=== PATIENT | female | born 1950 | race Caucasian/White ===

== ENCOUNTER 2016-07-14 06:10 | Inpatient (IN) | payer OTHER ==
--- NOTE | 2016-07-09 16:19 | HP ---
Admitting History and Physical - Primary Care Physician PCP: Jairon Mcconnell - Admission Chief Complaint: Right breast cancer/ gene positive BRITTNEY mutation History of Present Illness: 65 year old postmenapausal female with family H/O breast cancer and recently diagnosed with BRITTNEY mutation and right breast lobular carcinoma. She routinely gets mammogram/Us and breast MRI. Mammogram and US 07/2015 were unchanged . MRI breast 05/2016 showed right 9:00 suspicious area.7mm. Us directed showed suspicious finding. US core b right 9:00 06/2016 showed invasive lobular carcinoma.She had a prior benign breast right side biopsy. History Source: Patient Limitations to Obtaining History: No Limitations - Past Medical History Cardiovascular: Yes: HTN - Past Surgical History Past Surgical History: Yes: (with hematoma 1982), Joint Replacement, Vein Stripping/Ligation - Smoking History Smoking history: Never smoked Have you smoked in the past 12 months: No - Alcohol/Substance Use Hx Alcohol Use: Yes (RARELY) Home Medications - Allergies Allergies/Adverse Reactions: Allergies Allergy/AdvReac Type Severity Reaction Status Date / Time No Known Allergies Allergy Verified 06/24/16 13:05 - Home Medications Home Medications: Ambulatory Orders Acetaminophen [Tylenol -] 1,000 mg PO BID 06/24/16 Losartan Potassium [Cozaar -] 50 mg PO DAILY 06/24/16 Family Disease History - Family Disease History Family Disease History: CA: Mother (leukemia), Sister (Breast ca 59// siter bilateral breast ca and endometrial ca 55 BRCA neg) Physical Examination Constitutional: Yes: Well Nourished Breast(s): Yes: Other (C cup breast bilaterally no palpable masses bilaterally post bx changes right breast with mild echymosis no palpable adenopathy bilaterally) Problem List - Problems (1) Breast cancer, right breast Code(s): C50.911 - MALIGNANT NEOPLASM OF UNSP SITE OF RIGHT FEMALE BREAST Qualifiers: Breast location: upper outer quadrant of breast Patient sex: female (2) 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
[2016-07-13 14:58] VITALS: BMI 31.9
[2016-07-14] MEDS ORDERED: ISOSULFAN BLUE 10 MG/ML VIAL SQ ONE (07:32)
[2016-07-14] MEDS ORDERED: PAPAVERINE HCL 30 MG/1 ML 10 ML VIAL NR ONE (07:32)
[2016-07-14] MEDS ORDERED: HEPARIN NA (PORCINE) 5,000 UNITS/ML 1ML VIAL ONE (07:32)
[2016-07-14] MEDS ORDERED: PROPOFOL 20 ML ONE ×5 (07:42→15:35)
[2016-07-14] MEDS ORDERED: MIDAZOLAM HCL 2 MG/2 ML SINGLE DOSE VIAL ONE ×5 (07:42)
[2016-07-14] MEDS ORDERED: ROCURONIUM BROMIDE 50 MG/5 ML VIAL ONE ×6 (07:42→14:47)
[2016-07-14] MEDS ORDERED: ceFAZolin SODIUM 1 GM VIAL ONE ×2 (08:35→13:18)
[2016-07-14] MEDS ORDERED: BUPIVACAINE HCL/PF 0.25% (2.5MG/ML) 10 ML VIAL ONE (08:39)
[2016-07-14] MEDS ORDERED: LIDOCAINE HCL 1%, 10 MG/ML (20ML VIAL) ONE (08:39)
[2016-07-14] MEDS ORDERED: DEXAMETHASONE SOD PHOSPHATE 4 MG/1 ML VIAL ONE (08:45)
[2016-07-14] MEDS ORDERED: ONDANSETRON 4 MG/2 ML VIAL ONE (08:45)
[2016-07-14] MEDS ORDERED: ceFAZolin SODIUM 1 GM VIAL IVPB ONE ×2 (08:55→13:19)
[2016-07-14] MEDS ORDERED: GLYCOPYRROLATE 0.2 MG/1 ML VIAL ONE ×3 (09:53→17:24)
[2016-07-14] MEDS ORDERED: MINERAL OIL/PETROLATUM,WHITE 3.5 GM TUBE ONE (09:53)
[2016-07-14] MEDS ORDERED: ePHEDrine SULFATE 50 MG/1 ML AMPULE ONE (10:38)
[2016-07-14] MEDS ORDERED: SCOPOLAMINE HYDROBROMIDE 1 PATCH PATCH.TD72 ONE (10:48)
[2016-07-14] MEDS ORDERED: PHENYLEPHRINE HCL 10 MG/1 ML SINGLE DOSE VIAL ONE (15:25)
[2016-07-14] MEDS ORDERED: HYDROmorphone HCL/PF 1 MG/ML VIAL (FOR PYXIS CHARGING ONLY) ONE (16:10)
[2016-07-14] MEDS ORDERED: ONDANSETRON 4 MG/2 ML VIAL IVPUSH PRN (16:20)
[2016-07-14] MEDS ORDERED: NEOSTIGMINE METHYLSULFATE 0.5 MG/ML - 10 ML MDV ONE (16:48)
[2016-07-14] MEDS ORDERED: BACITRACIN 30 GM TUBE TOPICAL OINTMENT ONE (17:36)
--- NOTE | 2016-07-14 17:58 | OP ---
Operative Note - Note: Operative Date: 07/14/16 Pre-Operative Diagnosis: right breast cancer Operation: Bilateral breast mastectomy with right sentinel lymph node biopsy. Bilateral reconstruction with HAYDEN flap Implants: none Post-Operative Diagnosis: Same as Pre-op Surgeon: Haider Charles (Dr. Ahumada) Bird Sitter: Erlin Roberts) Anesthesiologist/BRAIDING OPERATOR: Wagner De Guzman Anesthesia: General Specimens Removed: bilateral breast, sentinel biopsy right breast Estimated Blood Loss (mls): 250 Drains & Tubes with Location: 4 EHSAN drains Fluid Volume Replaced (mls): 3,900
[2016-07-14] MEDS ORDERED: LACTATED RINGERS SOLUTION 1,000 ML IV STA (18:02)
[2016-07-14] MEDS ORDERED: HYDROmorphone *PCA* 10MG/50ML DISP.SYRIN PCA ONE (18:25)
[2016-07-14] MEDS ORDERED: HYDROmorphone HCL CARPU-JECT 2 MG/1 ML DISP.SYRIN ONE (18:25)
[2016-07-14] MEDS: HYDROmorphone HCL CARPU-JECT 1 MG/1 ML DISP.SYRIN IVPUSH PRN ×2 (18:28→18:38)
[2016-07-14] MEDS: LACTATED RINGERS SOLUTION 1,000 ML IV SCH (18:30)
[2016-07-14] MEDS: HYDROmorphone *PCA* 10MG/50ML DISP.SYRIN PCA SCH (19:00)
[2016-07-14] MEDS: ASPIRIN 325 MG ENTERIC COATED TABLET (FP) PO SCH (20:00)
--- NOTE | 2016-07-14 20:34 | CONSULT ---
Consult - text type - Consultation Consultation Note: PULM/CCM Pt Seen and examined in ICU CC: post op bilateral mastectomy HPI: Briefly Ms Saxena is a 65 year old postmenopausal female with significant family hx of breast cancer and recent diagnosed of right breast lobular carcinoma w/ BRITTNEY mutation. Her recent investigations were notable for MRI breast 05/2016 which showed suspicious area 9:00 of ~.7mm. US confirmed suspicious finding and a US core biopsy on 06/2016 showed invasive lobular carcinoma.She had a prior benign breast right side biopsy. She now presents to hospital for elective bilateral breast mastectomy with right sentinel lymph node biopsy and bilateral reconstruction with HAYDEN flap. The surgery was performed under general anesthesia, there was 250cc of estimated blood loss with 3.8L of intra-op fluids given. 4 drains were placed, she was recovered and extubated in PACU. She comes to ICU for overnight observation, monitoring of EHSAN drain output, and monitoring of flap viability/pulses with doppler. Ms Saxena arrives in ICU awake, alert, pain controleld and hemodyanmically stable. Past Medical History Cardio/Vascular HTN Past Surgical History Past Surgical History (with hematoma 1982),Joint Replacement ,Vein Stripping/Ligation Ambulatory Orders Acetaminophen [Tylenol -] 1,000 mg PO BID 06/24/16 Losartan Potassium [Cozaar -] 50 mg PO DAILY 06/24/16 Vital Signs Temp 98.4 F 07/14/16 20:30 Pulse 87 07/14/16 20:30 Resp 22 07/14/16 20:30 BP 124/75 07/14/16 20:30 Pulse Ox 98 07/14/16 06:37 Intake & Output 07/13/16 07/14/16 07/14/16 23:59 11:59 23:59 Intake Total 3900 Output Total 1050 Balance 2850 Weight 84.368 kg Intake: IV 3900 Output: Urine 800 Estimated Blood Loss 250 Other: Height 5 ft 4 in Body Mass Index (BMI) 31.9 Weight Measurement Method Stated by Patient LABS pending Imaging Pending ROS: non contrib. Elective surgery. No complaints prior to admission. PE: GEN: awake, alert, conversant, likley anxious HEENT: PERRL, NCAT CV: RRR, no m/r/g Chest/abd: bilateral surgical incisions, viable appear tissue bilaterally, + doppler b/l EHSAN #1: 100cc, #2-4 < 30cc all sanginous + BS EXT: trace edema, + pulses throughout. Neuro: non focal A/ 65 y/o woman s/p uneventful bilateral mastectomy with Bilateral reconstruction with HAYDEN flap P/ -overnight ICU observation -PROFESSIONAL HEALTHCARE REPRESENTATIVE for pain control -monitor EHSAN x 4 output, contact surgical team for brisk output -serial monitoring of arterial doppler flow to bilateral flaps -am CBC unless significant outpt -OOB to chair in am -advance diet as tolerated -if stable overnight, ok for med surg in am -DVT prophy Fam Sam ACNP [id number]
[2016-07-14] MEDS: DOCUSATE SODIUM 100 MG CAPSULE (FP) PO SCH (21:55)
[2016-07-14] MEDS: CEFAZOLIN (PRE-DOCKED) 50 ML IVPB SCH (21:55)
[2016-07-15] MEDS: CEFAZOLIN (PRE-DOCKED) 50 ML IVPB SCH ×4 (02:19→21:02)
[2016-07-15 06:19] LABS: MCH 28.9 pg (25.7-33.7); MEAN CELL VOLUME 87.5 fl (80-96); MEAN PLT VOLUME 10.7 fl (7.5-11.1); NEUTROPHILS 83.7 % (42.8-82.8); PLATELET COUNT 142 K/MM3 (134-434); RDW 15.1 % (11.6-15.6); WHITE BLOOD COUNT 10.2 K/mm3 (4.0-10.0)
--- NOTE | 2016-07-15 07:48 | PN ---
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 After counseling , the patient decided to undergoe bilateral mastectomies and chose to have bilateral HAYDEN reconstructions. - Current Medication List Current Medications: Active Medications Aspirin (Ecotrin -) 325 mg PO DAILY [facility] Last Admin: 07/14/16 20:00 Dose: 325 mg Diazepam (Valium -) 5 mg PO Q8H PRN PRN Reason: ANXIETY Docusate Sodium (Colace -) 100 mg PO BID [facility] Last Admin: 07/14/16 21:55 Dose: 100 mg Enoxaparin Sodium (Lovenox -) 40 mg SQ DAILY [facility] Hydromorphone HCl (Dilaudid Maths Tutor -) 0 mg CRADLE PLACER CRADLE PLACER ANUP PRN Reason: Protocol Stop: 07/17/16 16:21 Last Admin: 07/14/16 19:00 Dose: 10 mg Hydromorphone HCl (Dilaudid Injection -) 0.5 mg IVPUSH [id number] PRN PRN Reason: PAIN Stop: 07/17/16 16:21 Last Admin: 07/14/16 18:38 Dose: 0.5 mg Cefazolin Sodium (Ancef 1gm Ivpb (Pre-Docked)) 50 mls @ 100 mls/hr IVPB Q6H-IV [facility] Last Admin: 07/15/16 02:19 Dose: 100 mls/hr Lactated Ringer's (Lactated Ringers Solution) 1,000 mls @ 125 mls/hr IV ASDIR [facility] Last Admin: 07/14/16 18:30 Dose: 168 mls Losartan Potassium (Cozaar -) 50 mg PO DAILY [facility] - Objective Vital Signs: Vital Signs Temperature 99.4 F 07/15/16 02:00 Pulse Rate 87 07/15/16 06:00 Respiratory Rate 20 07/15/16 06:00 Blood Pressure 96/63 07/15/16 07:00 O2 Sat by Pulse Oximetry (%) 99 07/14/16 21:42 Constitutional: Yes: Well Nourished, No Distress, Calm Eyes: Yes: WNL HENT: Yes: WNL Neck: Yes: WNL Cardiovascular: Yes: Regular Rate and Rhythm Respiratory: Yes: Regular Gastrointestinal: Yes: Normal Bowel Sounds, Soft ...Rectal Exam: Yes: Deferred Genitourinary: Yes: WNL Breast(s): Yes: Other (Wounds clean, dry, and intact. 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 She has good pain control on CRADLE PLACER. Wounds clean, dry, and intact. Good doppler signals in flaps. Flaps warm and viable. Skin flaps intact. Drains putting out some bloody drainage. Hct lower but expected. Will start clear liquid diet today and allow OOB too chair in afternoon. Can remove bates when OOB. Will hold lovenox dose today. Continue antibiotics and continue CRADLE PLACER for pain. Continue regular flap checks. Code(s): Z15.01 - GENETIC SUSCEPTIBILITY TO MALIGNANT NEOPLASM OF BREAST (2) Breast cancer, right breast Code(s): C50.911 - MALIGNANT NEOPLASM OF UNSP SITE OF RIGHT FEMALE BREAST Qualifiers: Breast location: upper outer quadrant of breast Estrogen receptor status: positive Patient sex: female Qualified Code(s): C50.411 - Malignant neoplasm of upper-outer quadrant of right female breast; Z17.0 - Estrogen receptor positive status [ER+]
[2016-07-15] MEDS: LACTATED RINGERS SOLUTION 1,000 ML IV SCH ×2 (08:54→18:30)
[2016-07-15] MEDS ORDERED: ENOXAPARIN NA (PORCINE) 40 MG/0.4 ML DISP.SYRIN SQ SCH ×2 (10:00)
[2016-07-15] MEDS: ASPIRIN 325 MG ENTERIC COATED TABLET (FP) PO SCH (10:18)
[2016-07-15] MEDS: DOCUSATE SODIUM 100 MG CAPSULE (FP) PO SCH ×2 (10:18→21:03)
[2016-07-15] MEDS: LOSARTAN POTASSIUM 50 MG TABLET (FP) PO SCH ×2 (10:21→20:39)
--- NOTE | 2016-07-15 10:52 | PN ---
Physical Exam: SUBJECTIVE: Patient seen and examined. The pt is complaining of soreness and discomfort in her chest and upper abdomen. She denies chest pain, SOB, cough, fever, chills, palpitations. OBJECTIVE: Vital Signs Period Temp Pulse Resp BP Sys/Yee Pulse Ox Last 24 Hr 98.4 F-99.6 F 73-94 12-22 96-127/59-94 98-100 GENERAL: The patient is awake, alert, and fully oriented, in no acute distress. HEAD: Normal with no signs of trauma. EYES: PERRL, extraocular movements intact, sclera anicteric, conjunctiva clear. ENT: oropharynx clear without exudates, moist mucous membranes. NECK: Trachea midline, full range of motion, supple. LUNGS: Breath sounds equal, clear to auscultation bilaterally, no wheezes, no crackles, no accessory muscle use. HEART: Regular rate and rhythm, S1, S2 without murmur, rub or gallop. ABDOMEN: Obese, soft, nontender, nondistended, normoactive bowel sounds, no guarding, no rebound, no hepatosplenomegaly, no masses. EXTREMITIES: 2+ pulses, warm, well-perfused, no edema. NEUROLOGICAL: Normal speech, no facial asymmetry, no slurred speech, gait not observed. PSYCH: Normal mood, normal affect. SKIN: Warm, dry, normal turgor, no rashes, scars on her chest after mastectomy, well healing, drains applied b/l, good blood flow. Laboratory Results - last 24 hr 07/15/16 05:15 WBC 10.2 H RBC 3.21 L Hgb 9.3 L Hct 28.1 L MCV 87.5 MCHC 33.0 RDW 15.1 Plt Count 142 MPV 10.7 Neutrophils % 83.7 H Lymphocytes % 6.0 L Monocytes % 10.3 H Eosinophils % 0.0 Basophils % 0.0 Active Medications Generic Name Dose Route Start Last Admin Trade Name Freq PRN Reason Stop Dose Admin Aspirin 325 mg 07/14/16 20:00 07/15/16 10:18 Ecotrin - PO 325 mg DAILY [facility] Administration Diazepam 5 mg 07/14/16 17:58 Valium - PO Q8H PRN ANXIETY Docusate Sodium 100 mg 07/14/16 22:00 07/15/16 10:18 Colace - PO 100 mg BID [facility] Administration Enoxaparin Sodium 40 mg 07/15/16 10:00 Lovenox - SQ DAILY [facility] Hydromorphone HCl 0 mg 07/14/16 16:30 07/14/16 19:00 Dilaudid Lacquer Pin Press Operator - BOBTAIL DRIVER 07/17/16 16:21 10 mg BOBTAIL DRIVER ANUP Administration Protocol Hydromorphone HCl 0.5 mg 07/14/16 16:20 07/14/16 18:38 Dilaudid Injection - IVPUSH 07/17/16 16:21 0.5 mg [id number] PRN Administration PAIN Cefazolin Sodium 50 mls @ 100 mls/hr 07/14/16 21:00 07/15/16 08:53 Ancef 1gm Ivpb (Pre-Docked) IVPB 100 mls/hr Q6H-IV [facility] Administration Lactated Ringer's 1,000 mls @ 125 mls/hr 07/14/16 18:15 07/15/16 08:54 Lactated Ringers Solution IV 125 mls/hr ASDIR [facility] Administration Losartan Potassium 50 mg 07/14/16 10:00 07/15/16 10:21 Cozaar - PO 50 mg DAILY [facility] Administration ASSESSMENT/PLAN: 65 year old female s/p bilateral mastectomy with right SNL biopsy and bilateral reconstruction with HAYDEN flap. 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 Code(s): Z15.01 - GENETIC SUSCEPTIBILITY TO MALIGNANT NEOPLASM OF BREAST (2) Breast cancer, right breast Code(s): C50.911 - MALIGNANT NEOPLASM OF UNSP SITE OF RIGHT FEMALE BREAST Qualifiers: Breast location: upper outer quadrant of breast Estrogen receptor status: positive Patient sex: female Qualified Code(s): C50.411 - Malignant neoplasm of upper-outer quadrant of right female breast; Z17.0 - Estrogen receptor positive status [ER+] Visit type - Emergency Visit Emergency Visit: Yes ED Registration Date: 07/14/16 Care time: The patient presented to the Emergency Department on the above date and was hospitalized for further evaluation of their emergent condition. - New Patient This patient is new to me today: Yes Date on this admission: 07/15/16 - Critical Care Critical Care patient: Yes Total Critical Care Time (in minutes): 40 Critical Care Statement: The care of this patient involved high complexity decision making to prevent further life threatening deterioration of the patient 's condition and/or to evalute & treat vital organ system(s) failure or risk of failure.
--- NOTE | 2016-07-15 10:58 | OP ---
DATE OF OPERATION: 07/14/2016 PREOPERATIVE DIAGNOSIS: Right breast cancer, overlapping regions. POSTOPERATIVE DIAGNOSIS: Right breast cancer, overlapping regions, with known genetic predisposition for breast cancer. SURGERIES: Bilateral total mastectomies with a reduction pattern incision with a right axillary sentinel lymph node biopsy and bilateral deep flap reconstrutions. ANESTHESIA: General endotracheal anesthesia. PRIMARY SURGEON: Anival Zelaya MD PLUMBER'S HELPER: JESSICA Meza PRIMARY SURGEON FOR THE BILATERAL DEEP RECONSTRUCTION: Anival Charles MD HIS FIRST ASSISTANTS: Karlos Ahumada MD, and Jonah Pena MD COMPLICATIONS: There were no complications. INDICATIONS: Briefly, the patient is a 65-year-old postmenopausal white female of [place] descent. She has two sisters who had breast cancer at age 56 and age 60. The patient herself had a benign right breast biopsy in 2011. She had an increased scale risk model and underwent a screening MRI in May of 2016 showing a suspicious density in the right breast 9 o'clock region. MRI-guided biopsy performed in Jun, 2016, showed an infiltrating lobular cancer which was ER/CT positive, HER2/coral negative, with a low proliferative index. She was advised to undergo a wide excision, but we did do genetic testing, and she turned out to have an BRITTNEY positive mutation and was advised on bilateral mastectomies. The patient was seen by plastic surgery and decided to go forward with bilateral deep flap reconstructions. DESCRIPTION OF PROCEDURE: The patient was scheduled for surgery at [facility] and was brought in on July 14, 2016. She first underwent a lymphoscintigraphy in Nuclear Medicine and was brought to the holding area. In the holding area, site verification was made and informed consent was obtained. She was marked preoperatively by the plastic surgeons with a total mastectomy reduction pattern technique. She was brought into the operating room and laid on the OR table in the supine position. Venodynes were placed on the lower extremities prior to induction. We did place a Mathis preoperatively. She had a gram of Ancef given before incision. She was given general endotracheal anesthesia. Then, 3 mL of lymphazurin blue were injected intradermally and peritumorally around the nipple areolar complex of the right breast. The right mastectomy was first performed. An incision was made just above the hair-bearing area of the right axilla, and dissection was undertaken, and a blue lymphatic was easily found coursing to a blue hot lymph node with a 10-second gamma count of 15,551. No other hot or blue nodes were found, and background count after removal of this node was 1301. Frozen section of sentinel nodes came back negative, so no further nodes were removed. At this point, the right mastectomy was performed through a reduction pattern incision. The entire nipple areolar complex was removed with the mastectomy. Skin flaps were raised superiorly to the level of the clavicle, medially to the level of the sternum, laterally to the level of the latissimus, and inferiorly below the level of the inframammary fold. The breast was taken down off the pectoralis major muscle from medial to lateral, completely removed intact and oriented with the long-lateral short-superior suture. It was weighed to allow for appropriate cosmetic result. Hemostasis was achieved, and the wound was copiously irrigated with warm sterile saline. At this point, the left mastectomy was performed prophylactically using the same reduction pattern incision. Skin flaps again were raised superiorly to the level of the clavicle, medially to the level of the sternum, laterally to the level of the latissimus, and inferiorly below the level of the inframammary fold. The breast was taken down off the pectoralis major muscle from medial to lateral, completely removed intact. It was oriented with the long-lateral short-superior suture and weighed to allow for appropriate cosmetic result. Skin flaps were trimmed for good cosmetic result, hemostasis was achieved, and the wound was copiously irrigated with warm sterile saline. At this point, the right breast was x-rayed and both clips were found in the right breast confirming removal of the cancerous lesion. Separate instruments were removed for the right and left breasts to prevent cross contamination of the cancer. Dr. Charles as well as Dr. Ahumada and Dr. Pena began harvesting the tissue of the abdominal wall at the same time as the mastectomies to reduce operative time. The deep flap reconstruction and all wound closures will be dictated separately by Plastic surgery. All sponge and needle counts were correct at this point in the case, and estimated blood loss was about 50 mL. The patient had good urine output at this point in the case. After the reconstruction, the patient will be monitored closely with Doppler evaluation to the flaps every hour postoperatively. She will be admitted postoperatively for pain management as well as wound management and flap management. ANIVAL ZELAYA M.D. [id number]
[2016-07-15] MEDS ORDERED: BENZOCAINE/MENTH/CETYLPYRD CL 1 EACH LOZENGE MM PRN (12:15)
--- NOTE | 2016-07-15 12:28 | PN ---
Progress Note (short form) - Note Progress Note: Patient is POD #1 s/p bilateral breast reconstruction with HAYDEN flap immediately after bilateral mastectomy. Patient was seen by bedside by Dr. Ahumada this morning. Patient was seen by me and her nurse at noon by bedside with her daughter in the room. Patient has been doing well. She has been tolerating pain well, VARIETY LATHE OPERATOR as per anesthesia. Starting to eat clear liquid diet for noon. Drinking water well. Noted 100.3 temp just now. Denies headache, chills, nausea/vomiting/diarrhea, or any urinary sxs. Patient has been bedrest and has a bates. She has been having the brenda hugger on her breasts. On PE, she is A&O x 3. Interactive and cooperative. Bilateral breasts with appropriate swelling. Incision is covered by dermabond. Some erythema around the incision site, especially noted on the IMF/Vertical junction on the right breast. Good cap refill on the flaps, Flaps are warm to touch, and doppler has great sound bilaterally. EHSAN drains holding suction well. Left EHSAN drain is draining more than the right, but it is appropriate amount. Abdomen with appropriate swelling. Incision is covered with steri strips. no surrounding erythema. A/P: POD #1 s/p bilateral breast reconstruction with HAYDEN flap immediately after bilateral mastectomy. Diet: Advance to regular for dinner. No caffeine, no chocolate. Added coughdrop for sore throat. Hold off Lovenox this morning. OOB to chair as toelrated. will keep bates until tomorrow. Temp - low grade, probably due to brenda hugger. we will d/c this for 2 hour and will check her temp then. Pain: continue energy conservation specialist. tolerating pain well. Doppler: continue with q1hr for now, change to q2hr at 6 pm Appreciate breast surgery following. Will continue to monitor her closely. patient states she does not need VNS but we plan on d/c her Wednesday pending on her recovery.
--- NOTE | 2016-07-15 13:01 | PN ---
Teaching Attending Note Name of Resident: Dianne Mejia ATTENDING PHYSICIAN STATEMENT I saw and evaluated the patient. I reviewed the resident's note and discussed the case with the resident. I agree with the resident's findings and plan as documented. SUBJECTIVE: Pt seen and examined in the ICU. Pain controlled on current regimen. Some sanguinous drainage from EHSAN drains. OBJECTIVE: Last Vital Signs Temp Pulse Resp BP Pulse Ox 99.6 F 86 20 107/69 99 07/15/16 10:00 07/15/16 12:00 07/15/16 12:00 07/15/16 12:00 07/14/16 21:42 Intake & Output 07/12/16 07/13/16 07/14/16 07/15/16 23:59 23:59 23:59 23:59 Intake Total 4368 1550 Output Total 1820 718 Balance 2548 832 Weight 186 lb Gen: NAD at rest Heart: RRR Chest: EHSAN x 4 with sanguinous drainage Lung: decreased breath sounds at the bases Abd: soft, nontender Ext: no edema CBC, BMP 07/15/16 05:15 Active Medications Aspirin (Ecotrin -) 325 mg PO DAILY [facility] Last Admin: 07/15/16 10:18 Dose: 325 mg Benzocaine/Menthol (Cepacol Lozenge -) 1 each MM PRN PRN PRN Reason: SORE THROAT Diazepam (Valium -) 5 mg PO Q8H PRN PRN Reason: ANXIETY Docusate Sodium (Colace -) 100 mg PO BID [facility] Last Admin: 07/15/16 10:18 Dose: 100 mg Enoxaparin Sodium (Lovenox -) 40 mg SQ DAILY [facility] Hydromorphone HCl (Dilaudid Wastewater Operator -) 0 mg BUFFING MACHINE TENDER BUFFING MACHINE TENDER ANUP PRN Reason: Protocol Stop: 07/17/16 16:21 Last Admin: 07/14/16 19:00 Dose: 10 mg Hydromorphone HCl (Dilaudid Injection -) 0.5 mg IVPUSH [id number] PRN PRN Reason: PAIN Stop: 07/17/16 16:21 Last Admin: 07/14/16 18:38 Dose: 0.5 mg Cefazolin Sodium (Ancef 1gm Ivpb (Pre-Docked)) 50 mls @ 100 mls/hr IVPB Q6H-IV [facility] Last Admin: 07/15/16 08:53 Dose: 100 mls/hr Lactated Ringer's (Lactated Ringers Solution) 1,000 mls @ 125 mls/hr IV ASDIR [facility] Last Admin: 07/15/16 08:54 Dose: 125 mls/hr Losartan Potassium (Cozaar -) 50 mg PO DAILY [facility] Last Admin: 07/15/16 10:21 Dose: 50 mg ASSESSMENT AND PLAN: s/p Bilateral Mastectomy/Reconstruction with HAYDEN flap - flap monitoring - pain control - incentive spirometry - PO as tolerated - DVT prophylaxis
--- NOTE | 2016-07-15 13:16 | PN ---
Progress Note, Physician Chief Complaint: s/p bilateral mastectomy HAYDEN procedure History of Present Illness: under general anesthesia EXCELLENCE LEADER for post op pain control - Current Medication List Current Medications: Active Medications Aspirin (Ecotrin -) 325 mg PO DAILY [facility] Last Admin: 07/15/16 10:18 Dose: 325 mg Benzocaine/Menthol (Cepacol Lozenge -) 1 each MM PRN PRN PRN Reason: SORE THROAT Diazepam (Valium -) 5 mg PO Q8H PRN PRN Reason: ANXIETY Docusate Sodium (Colace -) 100 mg PO BID [facility] Last Admin: 07/15/16 10:18 Dose: 100 mg Enoxaparin Sodium (Lovenox -) 40 mg SQ DAILY [facility] Hydromorphone HCl (Dilaudid Movie Producer -) 0 mg EXCELLENCE LEADER EXCELLENCE LEADER [facility] PRN Reason: Protocol Stop: 07/17/16 16:21 Last Admin: 07/14/16 19:00 Dose: 10 mg Hydromorphone HCl (Dilaudid Injection -) 0.5 mg IVPUSH [id number] PRN PRN Reason: PAIN Stop: 07/17/16 16:21 Last Admin: 07/14/16 18:38 Dose: 0.5 mg Cefazolin Sodium (Ancef 1gm Ivpb (Pre-Docked)) 50 mls @ 100 mls/hr IVPB Q6H-IV [facility] Last Admin: 07/15/16 08:53 Dose: 100 mls/hr Lactated Ringer's (Lactated Ringers Solution) 1,000 mls @ 125 mls/hr IV ASDIR [facility] Last Admin: 07/15/16 08:54 Dose: 125 mls/hr Losartan Potassium (Cozaar -) 50 mg PO DAILY [facility] Last Admin: 07/15/16 10:21 Dose: 50 mg - Objective Vital Signs: Vital Signs Temperature 99.6 F 07/15/16 10:00 Pulse Rate 86 07/15/16 12:00 Respiratory Rate 20 07/15/16 12:00 Blood Pressure 107/69 07/15/16 12:00 O2 Sat by Pulse Oximetry (%) 99 07/14/16 21:42 Constitutional: Yes: Well Nourished Cardiovascular: Yes: WNL, Tachycardia Respiratory: Yes: WNL, On Nasal O2 Gastrointestinal: Yes: WNL Labs: CBC, BMP 07/15/16 05:15 Assessment/Plan patient is comfortable, no anesthetic complications, some throat soreness relieved with ice chips, pain contorlled, will continue EXCELLENCE LEADER until tomorrow and will convert to oral analgesics. Will prescribe lozenges for the throat pain
[2016-07-15] MEDS: ACETAMINOPHEN 325 MG TABLET (FP) PO PRN (14:10)
[2016-07-15] MEDS: ONDANSETRON 4 MG/2 ML VIAL IVPUSH PRN (15:11)
[2016-07-15] MEDS ORDERED: ASPIRIN 325 MG TABLET PO SCH (17:58)
[2016-07-15] MEDS ORDERED: oxyCODONE HCL 5 MG TABLET PO PRN ×2 (18:17→18:18)
[2016-07-15] MEDS ORDERED: ACETAMINOPHEN 325 MG TABLET (FP) PO PRN ×4 (18:17→18:21)
[2016-07-15] MEDS: oxyCODONE HCL 5 MG TABLET PO PRN (23:01)
[2016-07-16] MEDS: ACETAMINOPHEN 325 MG TABLET (FP) PO PRN ×4 (01:03→21:47)
[2016-07-16] MEDS ORDERED: DOPAMINE 400 MG/D5W - 250 ML IVPB ONE (01:48)
[2016-07-16] MEDS: CEFAZOLIN (PRE-DOCKED) 50 ML IVPB SCH ×4 (03:15→21:47)
[2016-07-16 05:52] LABS: BASOPHIL 0.2 % (0-2.0); EOSINOPHIL 0.2 % (0-4.5); MCH 28.2 pg (25.7-33.7); MCHC 32.5 g/dl (32.0-36.0); MEAN CELL VOLUME 86.7 fl (80-96); NEUTROPHILS 78.9 % (42.8-82.8); RDW 15.4 % (11.6-15.6); WHITE BLOOD COUNT 8.4 K/mm3 (4.0-10.0)
[2016-07-16] MEDS: oxyCODONE HCL 5 MG TABLET PO PRN ×3 (06:20→15:00)
[2016-07-16 06:27] LABS: ALBUMIN 2.5 g/dl (3.4-5.0); ANION GAP 7 (8-16); CALCIUM 7.5 mg/dL (8.5-10.1); CO2 28 mmol/L (21-32); GLUCOSE,RANDOM 114 mg/dL (74-106)
[2016-07-16 06:30] LABS: ALK PHOS 43 U/L (45-117); BILIRUBIN,TOTAL 0.5 mg/dL (0.2-1.0); CREATININE 0.8 mg/dL (0.55-1.02); SGOT/AST 39 U/L (15-37); SGPT/ALT 17 U/L (12-78); TOT PROT 4.4 g/dl (6.4-8.2)
[2016-07-16 07:48] LABS: MEAN PLT VOLUME 10.3 fl (7.5-11.1); PLATELET COUNT 92 K/MM3 (134-434)
[2016-07-16 07:49] LABS: PLATELET COMMENT2 FEW GIANT PLTS
--- NOTE | 2016-07-16 08:18 | PN ---
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 After counseling , the patient decided to undergoe bilateral mastectomies and chose to have bilateral HAYDEN reconstructions. - Current Medication List Current Medications: Active Medications Acetaminophen (Tylenol -) 650 mg PO Q6H PRN PRN Reason: FEVER OR PAIN Last Admin: 07/16/16 06:21 Dose: 650 mg Acetaminophen (Tylenol -) 650 mg PO Q6H PRN PRN Reason: PAIN Benzocaine/Menthol (Cepacol Lozenge -) 1 each MM PRN PRN PRN Reason: SORE THROAT Diazepam (Valium -) 5 mg PO Q8H PRN PRN Reason: ANXIETY Docusate Sodium (Colace -) 100 mg PO BID [facility] Last Admin: 07/15/16 21:03 Dose: 100 mg Enoxaparin Sodium (Lovenox -) 40 mg SQ DAILY [facility] Hydromorphone HCl (Dilaudid Injection -) 0.5 mg IVPUSH [id number] PRN PRN Reason: PAIN Stop: 07/17/16 16:21 Last Admin: 07/14/16 18:38 Dose: 0.5 mg Cefazolin Sodium (Ancef 1gm Ivpb (Pre-Docked)) 50 mls @ 100 mls/hr IVPB Q6H-IV [facility] Last Admin: 07/16/16 03:15 Dose: 100 mls/hr Losartan Potassium (Cozaar -) 50 mg PO DAILY [facility] Last Admin: 07/15/16 20:39 Dose: Not Given Ondansetron HCl (Zofran Injection) 4 mg IVPUSH Q6H PRN PRN Reason: NAUSEA AND/OR VOMITING Last Admin: 07/15/16 15:11 Dose: 4 mg Oxycodone HCl (Roxicodone -) 5 mg PO Q6H PRN PRN Reason: PAIN Last Admin: 07/16/16 06:20 Dose: 5 mg Oxycodone HCl (Roxicodone -) 10 mg PO Q6H PRN PRN Reason: PAIN Last Admin: 07/15/16 23:01 Dose: 10 mg - Objective Vital Signs: Vital Signs Temperature 98.4 F 07/16/16 07:00 Pulse Rate 79 07/16/16 07:00 Respiratory Rate 18 07/16/16 07:00 Blood Pressure 96/68 07/16/16 07:00 O2 Sat by Pulse Oximetry (%) 99 07/14/16 21:42 Constitutional: Yes: No Distress, Calm Eyes: Yes: WNL HENT: Yes: WNL Neck: Yes: WNL Cardiovascular: Yes: Regular Rate and Rhythm Respiratory: Yes: WNL Gastrointestinal: Yes: Normal Bowel Sounds, Soft ...Rectal Exam: Yes: Deferred Genitourinary: Yes: WNL Breast(s): Yes: Other (HAYDEN flaps warm with good dopplerable signals. [place] skin flaps with some echymosis on lower incsions. No signs of hematoma or bleeding. Srians functioning well) Musculoskeletal: Yes: WNL Extremities: Yes: WNL Wound/Incision: Yes: Clean/Dry, Well Approximated, Other (Some echymosis on lwer wound edges) Neurological: Yes: WNL Psychiatric: Yes: Alert, Oriented Labs: CBC, BMP 07/16/16 05:10 07/16/16 05:10 Problem List - Problems (1) Genetic predisposition to malignant neoplasm of breast Code(s): Z15.01 - GENETIC SUSCEPTIBILITY TO MALIGNANT NEOPLASM OF BREAST (2) Breast cancer, right breast Assessment/Plan: The patient is doing well POD#2 s/p bilateral total mastectomies and Bilateral HAYDEN flap reconstructions. Her flaps are warm and viable but she does have echymosis on her [place] skin flaps on the lower aspects of the incisions. Her drains are functioning well with normal outputs. There are no signs of hematoma. Drs. Charles and Brandyn were present and felt the HADYEN flaps were viable with good arterial and venous flow with no congestion. The patient has good pain control and is OOB tolerating clears. Her Hct is 21.8 this AM but she has stable vitals and is afebrile. Will recheck Hct at noon and if still low will consider transfusing 2 units PRBC's. The patient is aware and consents. The patient can continue OOB to chair today. Continue clears today. Continue antibiotics. Will continue to monitor in ICU today and continue flap checks with doppler. Will hold lovenox again today. Code(s): C50.911 - MALIGNANT NEOPLASM OF UNSP SITE OF RIGHT FEMALE BREAST Qualifiers: Breast location: upper outer quadrant of breast Estrogen receptor status: positive Patient sex: female Qualified Code(s): C50.411 - Malignant neoplasm of upper-outer quadrant of right female breast; Z17.0 - Estrogen receptor positive status [ER+]
--- NOTE | 2016-07-16 08:27 | PN ---
Progress Note (short form) - Note Progress Note: Anesthesia Pain follow up D#2 S/P B/L mastectomy under GA and INTERIOR DESIGN FACULTY MEMBER Patient is stable,no pain,no N/V. INTERIOR DESIGN FACULTY MEMBER is discontinued. No complications seen. Jackelyn Gonzales MD.
[2016-07-16] MEDS: LOSARTAN POTASSIUM 50 MG TABLET (FP) PO SCH (10:00)
[2016-07-16] MEDS: DOCUSATE SODIUM 100 MG CAPSULE (FP) PO SCH ×2 (10:00→21:47)
[2016-07-16 10:47] LABS: MCH 28.7 pg (25.7-33.7); MCHC 33.1 g/dl (32.0-36.0); MEAN CELL VOLUME 86.9 fl (80-96); MEAN PLT VOLUME 9.9 fl (7.5-11.1); PLATELET COUNT 115 K/MM3 (134-434); RDW 15.6 % (11.6-15.6); WHITE BLOOD COUNT 11.4 K/mm3 (4.0-10.0)
--- NOTE | 2016-07-16 13:12 | PN ---
Physical Exam: SUBJECTIVE: Patient seen and examined. The pt is complaining of discomfort in her chest. She started eating regular food. She was informed about the inmortance of using incentive spirometer 10 times/hr. OBJECTIVE: Vital Signs Period Temp Pulse Resp BP Sys/Yee Pulse Ox Last 24 Hr 98.4 F-101.3 F 79-94 17-24 96-116/51-95 GENERAL: The patient is awake, alert, and fully oriented, in no acute distress. HEAD: Normal with no signs of trauma. EYES: PERRL, extraocular movements intact, sclera anicteric, conjunctiva clear. ENT: oropharynx clear without exudates, moist mucous membranes. NECK: Trachea midline, full range of motion, supple. LUNGS: Breath sounds equal, clear to auscultation bilaterally, no wheezes, no crackles, no accessory muscle use. HEART: Regular rate and rhythm, S1, S2 without murmur, rub or gallop. ABDOMEN: Obese, soft, nontender, nondistended, normoactive bowel sounds, no guarding, no rebound, no hepatosplenomegaly, no masses. EXTREMITIES: 2+ pulses, warm, well-perfused, no edema. NEUROLOGICAL: Normal speech, no facial asymmetry, no slurred speech, gait not observed. PSYCH: Normal mood, normal affect. SKIN: Warm, dry, normal turgor, no rashes, scars on her chest after mastectomy, well healing, drains applied b/l, good blood flow. I&O drainage 125 ml. Laboratory Results - last 24 hr 07/16/16 07/16/16 07/16/16 05:10 05:10 10:41 WBC 8.4 11.4 H D RBC 2.42 L D 2.64 L Hgb 6.8 L* D 7.6 L D Hct 20.9 L D 22.9 L MCV 86.7 86.9 MCHC 32.5 33.1 RDW 15.4 15.6 Plt Count 92 L D 115 L D MPV 10.3 9.9 Neutrophils % 78.9 Lymphocytes % 12.4 D Monocytes % 8.3 Eosinophils % 0.2 D Basophils % 0.2 D Differential Comment Slide scanned Platelet Comment Few giant plts Sodium 137 Potassium 4.1 Chloride 102 Carbon Dioxide 28 Anion Gap 7 L BUN 20 H Creatinine 0.8 Creat Clearance w eGFR > 60 Random Glucose 114 H Calcium 7.5 L Total Bilirubin 0.5 AST 39 H ALT 17 Alkaline Phosphatase 43 L Total Protein 4.4 L Albumin 2.5 L Active Medications Generic Name Dose Route Start Last Admin Trade Name Freq PRN Reason Stop Dose Admin Acetaminophen 650 mg 07/15/16 14:00 07/16/16 06:21 Tylenol - PO 650 mg Q6H PRN Administration FEVER OR PAIN Acetaminophen 650 mg 07/15/16 18:21 Tylenol - PO Q6H PRN PAIN Aspirin 325 mg 07/16/16 13:15 Ecotrin - PO DAILY [facility] Benzocaine/Menthol 1 each 07/15/16 12:15 Cepacol Lozenge - MM PRN PRN SORE THROAT Diazepam 5 mg 07/14/16 17:58 Valium - PO Q8H PRN ANXIETY Docusate Sodium 100 mg 07/14/16 22:00 07/15/16 21:03 Colace - PO 100 mg BID [facility] Administration Enoxaparin Sodium 40 mg 07/15/16 10:00 Lovenox - SQ DAILY [facility] Cefazolin Sodium 50 mls @ 100 mls/hr 07/14/16 21:00 07/16/16 09:12 Ancef 1gm Ivpb (Pre-Docked) IVPB 100 mls/hr Q6H-IV [facility] Administration Losartan Potassium 50 mg 07/14/16 10:00 07/15/16 20:39 Cozaar - PO Not Given DAILY [facility] Ondansetron HCl 4 mg 07/15/16 14:59 07/15/16 15:11 Zofran Injection IVPUSH 4 mg Q6H PRN Administration NAUSEA AND/OR VOMITING Oxycodone HCl 5 mg 07/15/16 18:19 07/16/16 06:20 Roxicodone - PO 5 mg Q6H PRN Administration PAIN Oxycodone HCl 10 mg 07/15/16 18:20 07/16/16 09:12 Roxicodone - PO 5 mg Q6H PRN Administration PAIN ASSESSMENT/PLAN: 65 year old female s/p bilateral mastectomy with right SNL biopsy and bilateral reconstruction with HAYDEN flap. S/p mastectomy POD# 2 -ICU observation -Oxycodone pain control -f/u surgery recommendations -wounds clean, dry, and intact, good doppler signals in flaps -advanced to regular diet -continue antibiotics Ancef IV -f/u CBC at 5 PM, if low give PRBC -OOB to chair, spirometer Breast cancer; -right sided mastectomy -BRITTNEY mutation -SNL biopsy, waiting for results DVT prophylaxis -SCD -hold lovenox today bc of bleeding risk -cont Aspirin GI prophylaxis: -not recommended F/E/N: no/no changes/regular Disposition: ICU monitoring Problem List - Problems (1) Genetic predisposition to malignant neoplasm of breast Code(s): Z15.01 - GENETIC SUSCEPTIBILITY TO MALIGNANT NEOPLASM OF BREAST (2) Breast cancer, right breast Code(s): C50.911 - MALIGNANT NEOPLASM OF UNSP SITE OF RIGHT FEMALE BREAST Qualifiers: Breast location: upper outer quadrant of breast Estrogen receptor status: positive Patient sex: female Qualified Code(s): C50.411 - Malignant neoplasm of upper-outer quadrant of right female breast; Z17.0 - Estrogen receptor positive status [ER+] Visit type - Emergency Visit Emergency Visit: Yes ED Registration Date: 07/14/16 Care time: The patient presented to the Emergency Department on the above date and was hospitalized for further evaluation of their emergent condition. - New Patient This patient is new to me today: No - Critical Care Critical Care patient: Yes Total Critical Care Time (in minutes): 35 Critical Care Statement: The care of this patient involved high complexity decision making to prevent further life threatening deterioration of the patient 's condition and/or to evalute & treat vital organ system(s) failure or risk of failure.
[2016-07-16] MEDS ORDERED: ASPIRIN 325 MG ENTERIC COATED TABLET (FP) PO SCH (13:15)
--- NOTE | 2016-07-16 13:46 | PN ---
Teaching Attending Note Name of Resident: Dianne Mejia ATTENDING PHYSICIAN STATEMENT I saw and evaluated the patient. I reviewed the resident's note and discussed the case with the resident. I agree with the resident's findings and plan as documented. SUBJECTIVE: Patient seen and examined in the ICU. Pain mostly controlled on current regimen , some breakthrough pain this AM. Anemia noted. Evaluated by surgeons at bedside. No active significant bleeding note. Will re-check H&H at 5PM. OBJECTIVE: Intake & Output 07/13/16 07/14/16 07/15/16 07/16/16 23:59 23:59 23:59 23:59 Intake Total 4368 3500 550 Output Total 1820 1173 1025 Balance 2548 2327 -475 Weight 186 lb Last Vital Signs Temp Pulse Resp BP Pulse Ox 98.4 F 79 18 96/68 99 07/16/16 07:00 07/16/16 07:00 07/16/16 07:00 07/16/16 07:00 07/14/16 21:42 Active Medications Acetaminophen (Tylenol -) 650 mg PO Q6H PRN PRN Reason: FEVER OR PAIN Last Admin: 07/16/16 06:21 Dose: 650 mg Acetaminophen (Tylenol -) 650 mg PO Q6H PRN PRN Reason: PAIN Aspirin (Ecotrin -) 325 mg PO DAILY [facility] Benzocaine/Menthol (Cepacol Lozenge -) 1 each MM PRN PRN PRN Reason: SORE THROAT Diazepam (Valium -) 5 mg PO Q8H PRN PRN Reason: ANXIETY Docusate Sodium (Colace -) 100 mg PO BID [facility] Last Admin: 07/15/16 21:03 Dose: 100 mg Enoxaparin Sodium (Lovenox -) 40 mg SQ DAILY [facility] Cefazolin Sodium (Ancef 1gm Ivpb (Pre-Docked)) 50 mls @ 100 mls/hr IVPB Q6H-IV [facility] Last Admin: 07/16/16 09:12 Dose: 100 mls/hr Losartan Potassium (Cozaar -) 50 mg PO DAILY [facility] Last Admin: 07/15/16 20:39 Dose: Not Given Ondansetron HCl (Zofran Injection) 4 mg IVPUSH Q6H PRN PRN Reason: NAUSEA AND/OR VOMITING Last Admin: 07/15/16 15:11 Dose: 4 mg Oxycodone HCl (Roxicodone -) 5 mg PO Q6H PRN PRN Reason: PAIN Last Admin: 07/16/16 06:20 Dose: 5 mg Oxycodone HCl (Roxicodone -) 10 mg PO Q6H PRN PRN Reason: PAIN Last Admin: 07/16/16 09:12 Dose: 5 mg Gen: NAD at rest Heart: RRR Chest: EHSAN x 4 with sanguinous drainage Lung: decreased breath sounds at the bases Abd: soft, nontender Ext: no edema Laboratory Results - last 24 hr 07/16/16 07/16/16 07/16/16 05:10 05:10 10:41 WBC 8.4 11.4 H D RBC 2.42 L D 2.64 L Hgb 6.8 L* D 7.6 L D Hct 20.9 L D 22.9 L MCV 86.7 86.9 MCHC 32.5 33.1 RDW 15.4 15.6 Plt Count 92 L D 115 L D MPV 10.3 9.9 Neutrophils % 78.9 Lymphocytes % 12.4 D Monocytes % 8.3 Eosinophils % 0.2 D Basophils % 0.2 D Differential Comment Slide scanned Platelet Comment Few giant plts Sodium 137 Potassium 4.1 Chloride 102 Carbon Dioxide 28 Anion Gap 7 L BUN 20 H Creatinine 0.8 Creat Clearance w eGFR > 60 Random Glucose 114 H Calcium 7.5 L Total Bilirubin 0.5 AST 39 H ALT 17 Alkaline Phosphatase 43 L Total Protein 4.4 L Albumin 2.5 L ASSESSMENT AND PLAN: s/p Bilateral Mastectomy/Reconstruction with HAYDEN flap Acute Post-op anemia - flap monitoring - pain control - incentive spirometry - PO as tolerated - DVT prophylaxis - Follow CBC Dr Jason
--- NOTE | 2016-07-16 14:49 | PN ---
Progress Note (short form) - Note Progress Note: Patient is POD #2 s/p bilateral breast reconstruction with HAYDEN flap immediately after bilateral mastectomy. Patient was seen by bedside by Araceli Flowers and Dr. Mcconnell this morning. Patient was seen by me and her nurse at 8am and this afternoon. Patient has been doing well. PCAd.c and pain well controlled. Starting to drink clear liquid diet. Denies flatus. Drinking water well. . Denies headache, chills, nausea/vomiting/diarrhea, or any urinary sxs. Patient has been oob and had bates removed but failed TOV. She has been having the brenda hugger on her breasts. Pt HCT did drop but were managing conservatively and will f/u 6 pm labs. On PE, she is A&O x 3. Interactive and cooperative. Bilateral breasts with appropriate swelling. Incision is covered by dermabond. Some erythema and ecchymosis around the incision site, especially noted on the IMF/Vertical junction on the right breast. Good cap refill on the flaps, Flaps are warm to touch, and doppler has great sound bilaterally. EHSAN drains holding suction well. Left EHSAN drain is draining more than the right, but it is appropriate amount. Abdomen with appropriate swelling. Incision is covered with steri strips. no surrounding erythema. A/P: POD #2 s/p bilateral breast reconstruction with HAYDEN flap immediately after bilateral mastectomy. Diet: Advance to regular for dinner. No caffeine, no chocolate. Hold off Lovenox this morning. OOB to chair as toelrated. bates d/c Temp - low grade, probably due to brenda hugger. we will d/c this for 2 hour and will check her temp then. Pain: radio electrician d/c. tolerating pain well. Doppler: continue with q2 hr dopplers F/u 6 pm labs Will continue to monitor her closely. patient states she does not need VNS but we plan on d/c her Wednesday or sat pending on her recovery.
[2016-07-16 16:47] LABS: BASOPHIL 0.3 % (0-2.0); EOSINOPHIL 0.2 % (0-4.5); MCH 28.4 pg (25.7-33.7); MCHC 32.7 g/dl (32.0-36.0); MEAN CELL VOLUME 86.9 fl (80-96); MEAN PLT VOLUME 9.7 fl (7.5-11.1); NEUTROPHILS 84.2 % (42.8-82.8); PLATELET COUNT 99 K/MM3 (134-434); RDW 15.3 % (11.6-15.6); WHITE BLOOD COUNT 8.9 K/mm3 (4.0-10.0)
[2016-07-17] MEDS: ACETAMINOPHEN 325 MG TABLET (FP) PO PRN (02:50)
[2016-07-17] MEDS: oxyCODONE HCL 5 MG TABLET PO PRN ×4 (02:50→21:25)
[2016-07-17] MEDS: CEFAZOLIN (PRE-DOCKED) 50 ML IVPB SCH ×4 (03:00→21:17)
[2016-07-17 06:09] LABS: BASOPHIL 0.3 % (0-2.0); MCH 29.5 pg (25.7-33.7); MEAN CELL VOLUME 86.8 fl (80-96); MEAN PLT VOLUME 10.9 fl (7.5-11.1); NEUTROPHILS 81.5 % (42.8-82.8); PLATELET COUNT 93 K/MM3 (134-434); RDW 14.5 % (11.6-15.6); WHITE BLOOD COUNT 8.9 K/mm3 (4.0-10.0)
[2016-07-17 06:34] LABS: ALBUMIN 2.3 g/dl (3.4-5.0); ANION GAP 5 (8-16); CALCIUM 7.7 mg/dL (8.5-10.1); CO2 31 mmol/L (21-32); GLUCOSE,RANDOM 92 mg/dL (74-106)
[2016-07-17 06:38] LABS: ALK PHOS 62 U/L (45-117); BILIRUBIN,TOTAL 0.7 mg/dL (0.2-1.0); CREATININE 0.8 mg/dL (0.55-1.02); SGOT/AST 78 U/L (15-37); SGPT/ALT 48 U/L (12-78); TOT PROT 4.5 g/dl (6.4-8.2)
--- NOTE | 2016-07-17 09:30 | PN ---
Progress Note, Physician Chief Complaint: s/p bilateral mastectomy with bilateral HAYDEN reconstruction POD #3 History of Present Illness: Patient sitting upright on the chair and is not in distress. She states that she feels slightly "perkier" then yesterday. She is tolerating po well and is voiding. Patient denies any pain, SOB or chest pain. - Current Medication List Current Medications: Active Medications Acetaminophen (Tylenol -) 650 mg PO Q6H PRN PRN Reason: FEVER OR PAIN Last Admin: 07/17/16 02:50 Dose: 650 mg Acetaminophen (Tylenol -) 650 mg PO Q6H PRN PRN Reason: PAIN Benzocaine/Menthol (Cepacol Lozenge -) 1 each MM PRN PRN PRN Reason: SORE THROAT Diazepam (Valium -) 5 mg PO Q8H PRN PRN Reason: ANXIETY Docusate Sodium (Colace -) 100 mg PO BID [facility] Last Admin: 07/16/16 21:47 Dose: 100 mg Cefazolin Sodium (Ancef 1gm Ivpb (Pre-Docked)) 50 mls @ 100 mls/hr IVPB Q6H-IV [facility] Last Admin: 07/17/16 03:00 Dose: 100 mls/hr Losartan Potassium (Cozaar -) 50 mg PO DAILY [facility] Last Admin: 07/16/16 10:00 Dose: 50 mg Ondansetron HCl (Zofran Injection) 4 mg IVPUSH Q6H PRN PRN Reason: NAUSEA AND/OR VOMITING Last Admin: 07/15/16 15:11 Dose: 4 mg Oxycodone HCl (Roxicodone -) 5 mg PO Q6H PRN PRN Reason: PAIN Last Admin: 07/16/16 15:00 Dose: 5 mg Oxycodone HCl (Roxicodone -) 10 mg PO Q6H PRN PRN Reason: PAIN Last Admin: 07/17/16 02:50 Dose: 10 mg - Objective Vital Signs: Vital Signs Temperature 98.6 F 07/17/16 05:00 Pulse Rate 82 07/17/16 07:00 Respiratory Rate 22 07/17/16 07:00 Blood Pressure 115/88 07/17/16 07:00 O2 Sat by Pulse Oximetry (%) 99 07/14/16 21:42 Breast(s): Yes: Other (Flaps left more than right with ecchymosis. The flaps are slightly mottled but do not feel tense although left drain x 1 has some bloody discharge. Other 3 drains with serosanginous discharge. Patient has positive pulses bilaterally. Abdominal incisions are clean without discharge or erythema.) Labs: CBC, BMP 07/17/16 05:00 07/17/16 05:00 Problem List - Problems (1) Breast cancer, right breast Code(s): C50.911 - MALIGNANT NEOPLASM OF UNSP SITE OF RIGHT FEMALE BREAST Qualifiers: Breast location: upper outer quadrant of breast Estrogen receptor status: positive Patient sex: female Qualified Code(s): C50.411 - Malignant neoplasm of upper-outer quadrant of right female breast; Z17.0 - Estrogen receptor positive status [ER+] Assessment/Plan Plan Discussed case with Dr. Mcconnell. DC ASA and lovenox until further notice. SCD on while sitting. continue current tx regime. Repeat CBC today.
[2016-07-17] MEDS: LOSARTAN POTASSIUM 50 MG TABLET (FP) PO SCH (09:52)
[2016-07-17] MEDS: DOCUSATE SODIUM 100 MG CAPSULE (FP) PO SCH ×2 (09:52→22:17)
[2016-07-17 11:17] LABS: BASOPHIL 0.3 % (0-2.0); EOSINOPHIL 0.6 % (0-4.5); MCH 29.9 pg (25.7-33.7); MCHC 34.4 g/dl (32.0-36.0); MEAN PLT VOLUME 9.8 fl (7.5-11.1); NEUTROPHILS 86.3 % (42.8-82.8); PLATELET COUNT 99 K/MM3 (134-434); RDW 14.4 % (11.6-15.6); WHITE BLOOD COUNT 10.2 K/mm3 (4.0-10.0)
--- NOTE | 2016-07-17 13:08 | PN ---
Teaching Attending Note Name of Resident: Dianne Mejia ATTENDING PHYSICIAN STATEMENT I saw and evaluated the patient. I reviewed the resident's note and discussed the case with the resident. I agree with the resident's findings and plan as documented. SUBJECTIVE: Pt seen and examined in the ICU. Transfused 2 units PRBC yesterday with appropriate response. Pain controlled with current regimen. No shortness of breath or chest pain. No fevers or chills. OBJECTIVE: Last Vital Signs Temp Pulse Resp BP Pulse Ox 99.6 F 87 22 128/90 99 07/17/16 10:00 07/17/16 10:00 07/17/16 10:00 07/17/16 10:00 07/14/16 21:42 Intake & Output 07/14/16 07/15/16 07/16/16 07/17/16 23:59 23:59 23:59 23:59 Intake Total 4368 3500 1710 550 Output Total 1820 1173 2725 675 Balance 2548 2327 -1015 -125 Gen: NAD at rest Heart: RRR Chest: bilateral drains with serosanguinous drainage Lung: decreased breath sounds at the bases Abd: soft, nontender Ext: no edema CBC, BMP 07/17/16 11:08 07/17/16 05:00 Active Medications Acetaminophen (Tylenol -) 650 mg PO Q6H PRN PRN Reason: FEVER OR PAIN Last Admin: 07/17/16 02:50 Dose: 650 mg Acetaminophen (Tylenol -) 650 mg PO Q6H PRN PRN Reason: PAIN Benzocaine/Menthol (Cepacol Lozenge -) 1 each MM PRN PRN PRN Reason: SORE THROAT Diazepam (Valium -) 5 mg PO Q8H PRN PRN Reason: ANXIETY Docusate Sodium (Colace -) 100 mg PO BID [facility] Last Admin: 07/17/16 09:52 Dose: 100 mg Cefazolin Sodium (Ancef 1gm Ivpb (Pre-Docked)) 50 mls @ 100 mls/hr IVPB Q6H-IV [facility] Last Admin: 07/17/16 09:50 Dose: 100 mls/hr Losartan Potassium (Cozaar -) 50 mg PO DAILY [facility] Last Admin: 07/17/16 09:52 Dose: 50 mg Ondansetron HCl (Zofran Injection) 4 mg IVPUSH Q6H PRN PRN Reason: NAUSEA AND/OR VOMITING Last Admin: 07/15/16 15:11 Dose: 4 mg Oxycodone HCl (Roxicodone -) 5 mg PO Q6H PRN PRN Reason: PAIN Last Admin: 07/17/16 11:39 Dose: 5 mg Oxycodone HCl (Roxicodone -) 10 mg PO Q6H PRN PRN Reason: PAIN Last Admin: 07/17/16 02:50 Dose: 10 mg ASSESSMENT AND PLAN: s/p Bilateral Mastectomy/Reconstruction with HAYDEN flap Acute Blood Loss Anemia - monitor H/H - transfuse as needed - flap monitoring - pain control - incentive spirometry - PO as tolerated - DVT prophylaxis
--- NOTE | 2016-07-17 14:55 | PN ---
Physical Exam: SUBJECTIVE: Patient seen and examined. She is feeling better today but still complaining of chest discomfort. She denies SOB, chest pain, palpitations. OBJECTIVE: Vital Signs Period Temp Pulse Resp BP Sys/Yee Pulse Ox Last 24 Hr 98.6 F-99.6 F 68-91 10 101-128/50-90 GENERAL: The patient is awake, alert, and fully oriented, in no acute distress. HEAD: Normal with no signs of trauma. EYES: extraocular movements intact, sclera anicteric, conjunctiva clear. ENT: oropharynx clear without exudates, moist mucous membranes. NECK: Trachea midline, full range of motion, supple. LUNGS: Breath sounds equal, clear to auscultation bilaterally, no wheezes, no crackles, no accessory muscle use. HEART: Regular rate and rhythm, S1, S2 without murmur, rub or gallop. ABDOMEN: Obese, soft, nontender, nondistended, normoactive bowel sounds, no guarding, no rebound, no hepatosplenomegaly, no masses. EXTREMITIES: no edema. NEUROLOGICAL: Normal speech, no facial asymmetry, no slurred speech, gait not observed. PSYCH: Normal mood, normal affect. SKIN: Warm, dry, normal turgor, no rashes, scars on her chest after mastectomy, well healing, drains applied b/l, good blood flow. Laboratory Results - last 24 hr 07/16/16 07/16/16 07/16/16 16:00 16:00 16:30 WBC 8.9 RBC 2.31 L Hgb 6.6 L* D Hct 20.1 L MCV 86.9 MCHC 32.7 RDW 15.3 Plt Count 99 L MPV 9.7 Neutrophils % 84.2 H Lymphocytes % 7.6 L D Monocytes % 7.7 Eosinophils % 0.2 Basophils % 0.3 Nucleated RBCs Cancelled Hypersegmented Neuts Cancelled Toxic Granulation Cancelled Dohle Bodies Cancelled Corine Rods Cancelled Polychromasia Cancelled Hypochromic-Microcytic Cancelled Poikilocytosis Cancelled Basophilic Stippling Cancelled Anisocytosis Cancelled Microcytosis Cancelled Macrocytosis Cancelled Spherocytes Cancelled Siderocytes Cancelled Sickle Cells Cancelled Target Cells Cancelled Tear Drop Cells Cancelled Ovalocytes Cancelled Stomatocytes Cancelled Helmet Cells Cancelled Naqvi-[place] Bodies Cancelled [place]edar [place] Cancelled Clover Cells Cancelled Acanthocytes (Spur) Cancelled Rouleaux Cancelled Fragmented RBCs Cancelled Schistocytes Cancelled Morphology Comment Cancelled Sodium Potassium Chloride Carbon Dioxide Anion Gap BUN Creatinine Creat Clearance w eGFR Random Glucose Calcium Total Bilirubin AST ALT Alkaline Phosphatase Total Protein Albumin Blood Type O POSITIVE O POSITIVE Antibody Screen Negative Crossmatch See Detail 07/17/16 07/17/16 07/17/16 05:00 05:00 11:08 WBC 8.9 10.2 H RBC 2.58 L 3.03 L Hgb 7.6 L D 9.1 L D Hct 22.3 L 26.4 L D MCV 86.8 87.0 MCHC 34.0 34.4 RDW 14.5 14.4 Plt Count 93 L 99 L MPV 10.9 D 9.8 D Neutrophils % 81.5 86.3 H Lymphocytes % 9.8 D 5.7 L D Monocytes % 7.4 7.1 Eosinophils % 1.0 D 0.6 Basophils % 0.3 0.3 Nucleated RBCs Hypersegmented Neuts Toxic Granulation Dohle Bodies Corine Rods Polychromasia Hypochromic-Microcytic Poikilocytosis Basophilic Stippling Anisocytosis Microcytosis Macrocytosis Spherocytes Siderocytes Sickle Cells Target Cells Tear Drop Cells Ovalocytes Stomatocytes Helmet Cells Naqvi-[place] Bodies Cedar Rings Clover Cells Acanthocytes (Spur) Rouleaux Fragmented RBCs Schistocytes Morphology Comment Sodium 138 Potassium 4.0 Chloride 102 Carbon Dioxide 31 Anion Gap 5 L BUN 18 Creatinine 0.8 Creat Clearance w eGFR > 60 Random Glucose 92 Calcium 7.7 L Total Bilirubin 0.7 D AST 78 H D ALT 48 D Alkaline Phosphatase 62 D Total Protein 4.5 L Albumin 2.3 L Blood Type Antibody Screen Crossmatch Active Medications Generic Name Dose Route Start Last Admin Trade Name Freq PRN Reason Stop Dose Admin Acetaminophen 650 mg 07/15/16 14:00 07/17/16 02:50 Tylenol - PO 650 mg Q6H PRN Administration FEVER OR PAIN Acetaminophen 650 mg 07/15/16 18:21 Tylenol - PO Q6H PRN PAIN Benzocaine/Menthol 1 each 07/15/16 12:15 Cepacol Lozenge - MM PRN PRN SORE THROAT Diazepam 5 mg 07/14/16 17:58 Valium - PO Q8H PRN ANXIETY Docusate Sodium 100 mg 07/14/16 22:00 07/17/16 09:52 Colace - PO 100 mg BID ANUP Administration Cefazolin Sodium 50 mls @ 100 mls/hr 07/14/16 21:00 07/17/16 09:50 Ancef 1gm Ivpb (Pre-Docked) IVPB 100 mls/hr Q6H-IV ANUP Administration Losartan Potassium 50 mg 07/14/16 10:00 07/17/16 09:52 Cozaar - PO 50 mg DAILY ANUP Administration Ondansetron HCl 4 mg 07/15/16 14:59 07/15/16 15:11 Zofran Injection IVPUSH 4 mg Q6H PRN Administration NAUSEA AND/OR VOMITING Oxycodone HCl 5 mg 07/15/16 18:19 07/17/16 11:39 Roxicodone - PO 5 mg Q6H PRN Administration PAIN Oxycodone HCl 10 mg 07/15/16 18:20 07/17/16 02:50 Roxicodone - PO 10 mg Q6H PRN Administration PAIN ASSESSMENT/PLAN: 65 year old female s/p bilateral mastectomy with right SNL biopsy and bilateral reconstruction with HAYDEN flap. S/p mastectomy POD# 3 -ICU observation -Oxycodone pain control -f/u surgery recommendations -wounds clean, dry, and intact, good doppler signals in flaps -advanced to regular diet, tolerating well -continue antibiotics Ancef IV -yesterday Hgb was low and she was transfused 2 u of PRBCs -f/u CBC at 6 PM, if low give PRBC -OOB to chair, spirometer Fever: -the pt spiked fever 102.5 F this afternoon, rechecked at 5 PM 101.5F -Dr. Karlos Ahumada was informed and recommended cont. Tylenol. No chest x ray or blood cultures. -no leukocytosis, no SOB, chest pain, dysuria, but tachycardia 95-105. 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 Code(s): Z15.01 - GENETIC SUSCEPTIBILITY TO MALIGNANT NEOPLASM OF BREAST (2) Breast cancer, right breast Code(s): C50.911 - MALIGNANT NEOPLASM OF UNSP SITE OF RIGHT FEMALE BREAST Qualifiers: Breast location: upper outer quadrant of breast Estrogen receptor status: positive Patient sex: female Qualified Code(s): C50.411 - Malignant neoplasm of upper-outer quadrant of right female breast; Z17.0 - Estrogen receptor positive status [ER+] Visit type - Emergency Visit Emergency Visit: Yes ED Registration Date: 07/14/16 Care time: The patient presented to the Emergency Department on the above date and was hospitalized for further evaluation of their emergent condition. - New Patient This patient is new to me today: No - Critical Care Critical Care patient: Yes Total Critical Care Time (in minutes): 45 Critical Care Statement: The care of this patient involved high complexity decision making to prevent further life threatening deterioration of the patient 's condition and/or to evalute & treat vital organ system(s) failure or risk of failure.
--- NOTE | 2016-07-17 18:00 | PATH ---
Surgical Pathology Report Patient Name: ELLIE BARTH [facility]. Rec. #: [id number] /Age/Gender: 1950 (Age: 65) / F Account: [id number] Location: [facility] MED/SURG Taken: 07/14/2016 Received: 07/14/2016 Reported: 07/17/2016 Physicians: Jairon Mcconnell M.D. Specimen(s) Received A: RIGHT AXILLARY SENTINEL LYMPH NODE B: RIGHT BREAST C: LEFT BREAST D: LEFT INTERIOR MAMMARY LYMPH NODE Clinical History Breast cancer Intraoperative Consult Diagnosis A. [place] lymph node #1 right axillary, touch prep and frozen section: One lymph node, no carcinoma identified. Dr. Sal, 07/14/16. Final Diagnosis A. SENTINEL LYMPH NODE #1, RIGHT AXILLARY, BIOPSY: ONE LYMPH NODE, NEGATIVE FOR METASTATICCARCINOMA H&E AND AE1/AE3 KERATIN IMMUNOSTAIN (0/1). B. BREAST, RIGHT, MASTECTOMY: INVASIVE LOBULAR CARCINOMA, CLASSICAL TYPE. TUMOR FOCALITY AND SIZE: SINGLE FOCUS, 1.5 MM, UPPER OUTER QUADRANT (SEE COMMENT). LOBULAR CARCINOMA IN SITU (LCIS), CLASSICAL TYPE, NUCLEAR GRADE 1-2, WITH ASSOCIATED MICROCALCIFICATIONS. ASSOCIATED PRIOR BIOPSY SITE CHANGES PRESENT. SURGICAL RESECTION MARGINS: WIDELY NEGATIVE FOR INVASIVE CARCINOMA; CLOSEST RESECTION MARGIN (ANTERIOR SOFT TISSUE) IS 2 CM AWAY FROM CARCINOMA. SKIN: NOT INVOLVED BY CARCINOMA. NIPPLE: NOT INVOLVED BY CARCINOMA. LYMPHOVASCULAR INVASION: NOT IDENTIFIED. PERINEURAL INVASION: NOT IDENTIFIED. SURROUNDING BREAST TISSUE: FIBROCYSTIC CHANGE WITH FOCAL USUAL DUCT HYPERPLASIA, DUCTS DILATATION, CYSTS FORMATION AND STROMAL FIBROSIS WITH ASSOCIATED MICROCALCIFICATIONS; SMALL INTRADUCTAL PAPILLOMA. ONE INTRAMAMMARY LYMPH NODE, NEGATIVE FOR CARCINOMA (0/1). PATHOLOGIC STAGING: pT1A pN0 (ALSO REFER TO CHECKLIST BELOW). RECEPTOR STATUS: REFER TO CHECKLIST BELOW. Comment: Immunohistochemical stains for E-cadherin performed and interpreted at [facility] on block B4 is negative in tumor cells, supporting lobular phenotype. Prior outside core biopsy ([id number]) demonstrated a 4.0 mm focus of invasive lobular carcinoma, classical type. The focus of invasive carcinoma focus is 1.5 mm in the specimen. Since both measurements are < 5.0 mm, the assigned pathologic stage is pT1a. C. BREAST, LEFT, MASTECTOMY: DUCTAL CARCINOMA IN SITU (DCIS), INTERMEDIATE NUCLEAR GRADE, SOLID AND CRIBRIFORM TYPES, WITH CENTRAL COMEDO-TYPE NECROSIS AND MICROCALCIFICATIONS. DCIS EXTENT: DCIS IS PRESENT UPPER AND LOWER OUTER QUADRANTS, ON 3 OF 14 EXAMINED SLIDES, WITH THE GREATEST EXTENT ON ONE SLIDE OF 0.5 CM. LOBULAR CARCINOMA IN SITU (LCIS), CLASSICAL AND PLEOMORPHIC TYPES WITH ASSOCIATED MICROCALCIFICATIONS. SURGICAL RESECTION MARGINS: NEGATIVE (>2 MM) FOR DCIS AND PLEOMORPHIC LCIS; CLOSEST RESECTION MARGIN (DEEP) IS 3.0 MM AWAY FROM DCIS. NIPPLE: NOT INVOLVED BY DCIS. SURROUNDING BREAST TISSUE: FOCAL ATYPICAL DUCTAL HYPERPLASIA (ADH) IN BACKGROUND OF FIBROCYSTIC CHANGES USUAL DUCTAL HYPERPLASIA, COLUMNAR CELL CHANGE, ADENOSIS, AND ARE DILATATION, CYST FORMATION AND STROMAL FIBROSIS WITH ASSOCIATED CALCIFICATIONS. COARSE CALCIFICATIONS IN VASCULAR STEPHENS. TWO INTRAMAMMARY LYMPH NODES, NEGATIVE FOR CARCINOMA BY H&E AND AE1/AE3 KERATIN (ONE NODE) IMMUNOSTAIN (0/2). PATHOLOGIC STAGING: REFER TO CHECKLIST BELOW. RECEPTOR STATUS: REFER TO CHECKLIST BELOW. Comment: Immunohistochemical stain for E-cadherin performed and interpreted at [facility] on blocks C5, C8 and C10 shows positive staining in foci of DCIS of negative staining in foci of LCIS. Immunohistochemical stains for p63 and SMM-HC performed and interpreted and [facility] on block C10 highlights preserved myoepithelial cells, supporting in-situ carcinoma; no invasive carcinoma is identified. D. LYMPH NODE, LEFT INTERNAL MAMMARY, LYMPHADENECTOMY: ONE LYMPH NODE NEGATIVE FOR METASTATIC CARCINOMA BY H&E AND AE1/AE3 KERATIN IMMUNOSTAIN (0/1). Comments Part B: Breast Invasive Carcinoma: Surgical Pathology Cancer Case Summary Based on AJCC/UICC TNM, 7th edition Procedure _x_ Total mastectomy (including nipple and skin) Lymph Node Sampling _x_ Right sentinel lymph node _x_ Lymph nodes present within the breast specimen (intramammary lymph nodes) Specimen Laterality _x_ Right Tumor Size: Size of Largest Invasive Carcinoma Greatest dimension of largest focus of invasion over 1 mm: 1.5 mm Tumor Focality _x_ Single focus of invasive carcinoma Macroscopic and Microscopic Extent of Tumor Skin _x_ Invasive carcinoma does not invade into the dermis or epidermis Nipple _x_ DCIS does not involve the nipple epidermis (no DCIS present) Skeletal Muscle _x_ No skeletal muscle present Ductal Carcinoma In Situ (DCIS) _x_ No DCIS is present Lobular carcinoma in situ (LCIS) _x_ present Histologic Type of Invasive Carcinoma: _x_ Invasive lobular carcinoma Histologic Grade: (Simba Histologic Score) Tubular Differentiation _x_ Score 3 Nuclear Pleomorphism _x_ Score 1 Mitotic Rate _x_ Score 1 Overall Grade _x_ Not applicable (lobular carcinoma) Margins _x_ Margins uninvolved by invasive carcinoma Distance from closest margin: ~2.0 cm Specify margin: deep Lymph-Vascular Invasion _x_ Not identified Lymph Nodes Total number of lymph nodes examined (sentinel and nonsentinel): 3 Number of sentinel lymph nodes examined: 1 Number of lymph nodes with macrometastases ( > 2 mm): 0 Number of lymph nodes with micrometastases (>0.2 mm to 2 mm and/or >200cells):0 Number of lymph nodes with isolated tumor cells (=0.2 mm and =200 cells): 0 Size of largest metastatic deposit (if present): n/a Extranodal Extension _x_ Not applicable Pathologic Staging (pTNM) Primary Tumor (Invasive Carcinoma): pT1a Regional Lymph Nodes (pN): pN0 Distant Metastasis (pM): not applicable Biomarker Studies Results of ER and MN studies performed on this specimen (block B4) at [facility] are as follows: ER (clone [id number] mouse monoclonal antibody by [employer]): >90% nuclear staining with strong intensity (Positive). MN (clone16 mouse monoclonal antibody by [employer]): >90% nuclear staining with strong intensity (Positive). Results of Her2 studies will be reported separately in an addendum. Positive and negative controls (internal if applicable) show appropriate results. Formalin fixation and cold ischemic times are within current ASCO/CAP recommendations for ER, MN and Her2 testing. Part C: DCIS of Breast: Surgical Pathology Cancer Case Summary Based on AJCC/UICC TNM, 7th edition Procedure _x_ Total mastectomy (including nipple and skin) Lymph Node Sampling _x_ Internal mammary node (left) _x_ Lymph nodes present within the breast specimen (intramammary lymph nodes) Specimen Laterality _x_ Left Estimated size (extent) of DCIS (greatest dimension using gross and microscopic evaluation): Number of slides with DCIS: 3 Number of slides examined: 14 Greatest extent on one slide: 0.5 cm Nuclear Grade _x_ Grade II (intermediate) Necrosis _x_ Present, central (expansive "comedo" necrosis) Microcalcifications _x_ Present in both DCIS and non-neoplastic tissue LCIS: _x_ Present, classical and pleomorphic types Margins _x_ Margins uninvolved by DCIS or pleomorphic LCIS Distance from closest margin (deep): 3.0mm from DCIS Lymph Nodes Total number of nodes examined (sentinel and nonsentinel): 3 Number of sentinel nodes examined: 0 Lymph Node Involvement Number of lymph nodes with macrometastases (>2 mm): 0 Number of lymph nodes with micrometastases (>0.2 mm to 2 mm and/or >200 cells): 0 Number of lymph nodes with isolated tumor cells (=0.2 mm and =200 cells): 0 Size of largest metastatic deposit: n/a Pathologic Staging (pTNM) Primary Tumor (pT) _x_ pTis (DCIS): Ductal carcinoma in situ _x_ pTis (LCIS): Lobular carcinoma in situ Regional Lymph Nodes (pN): pN0 Distant Metastasis (pM): not applicable Biomarker Studies ER and MN studies are pending; results will be reported in an addendum. Electronically Signed Derrick Sal M.D. Addendum Reported: 07/21/2016 Addendum Diagnosis Results of Her2 (IHC) & Ki-67 studies performed on block B4 at [place], [place] ([id number]) are as follows: Her2 IHC (EP3 from [employer], formerly known as [id number], using [employer] Polymer Refine detection kit): 1+ (Negative) Ki-67: 5-10% (Low proliferation index) Positive and negative controls (internal if applicable) show appropriate results. Derrick Sal M.D. Gross Description A. Received fresh, labeled "sentinel lymph node #1 right axillary" is a 1.7 x 1.0 x 0.4 cm lymph node. The specimen is bisected, one touch prep and one frozen section are performed. The frozen section residue is submitted entirely in one cassette. B. Received in formalin, labeled "right breast" is a 943 gram, 27.0 x 19.0 x 4.5 cm. right mastectomy specimen with a short suture presumably marking the superior aspect and a long suture presumably marking the lateral aspect of the specimen. The anterior surface displays a 17.0 x 15.0 cm gould, irregular portion of skin with a 1.5 cm diameter nipple. The deep margin is inked black and the anterior soft tissue margin is inked blue. The specimen is serially sectioned from lateral to medial. Sectioning reveals a small focus of hemorrhage containing a biopsy clip in the upper outer quadrant (UOQ). No definite mass is associated with the biopsy clip. The previous biopsy site is at 2 cm from the anterior soft tissue margin. The remaining breast parenchyma displays foci of white fibrous tissue. No definitive masses are identified. There is a 0.5 cm in greatest dimension lymph node identified at the lateral aspect of the specimen. Transaction Manager sections are submitted in 22 cassettes as follows: 1-serially sectioned nipple; 2-subareolar shave; 3-5-UOQ previous biopsy site; 6-07-iozazykwbk UOQ tissue; 13-14-lower outer quadrant; 15-16-upper inner quadrant; 17-18-lower inner quadrant; 19-retroareolar tissue; 20-skin and anterior soft tissue margin; 21-deep margin; 22-one whole bisected lymph node. Time to formalin fixation: 25 min Total formalin fixation time: ~8h. C. Received in formalin, labeled "left breast" is a 781 gram, 17.0 x 15.0 x 4.8 cm. left mastectomy specimen with a short suture marking the superior aspect and a long suture marking the lateral aspect of the specimen, per the surgeon. The anterior surface displays a 14.7 x 14.0 cm gould, irregular portion of skin with a 1.3 cm in diameter nipple. The deep margin is inked black and the anterior soft tissue margin is inked blue. The specimen is serially sectioned from medial to lateral. Sectioning reveals multifocal dense, white, focally firm fibrous tissue. No definitive masses are identified. Also received in the same container is a 9.5 x 7.8 x 2.8 cm aggregate of unoriented, undesignated portions of fibroadipose tissue. Sectioning reveals 2 gould lymph nodes measuring 1.0 and 1.2 cm in greatest dimension. Transaction Manager sections are submitted in 16 cassettes as follows: 1-serially sectioned nipple; 2-subareolar shave; 3-6-upper outer quadrant; 7-8-lower outer quadrant; 9-10-upper inner quadrant; 11-12-lower inner quadrant; 13-skin and anterior soft tissue margin; 14-deep margin; 15-16-one whole bisected lymph node each. Time to fixation: <1h Total formalin fixation time: ~32h D. Received in formalin labeled "left internal mammary lymph node" is a 2.2 x 1.0 x 0.3 cm gould-yellow, irregular portion of soft tissue, possibly containing a lymph node. The specimen is submitted in toto in one cassette. AF/07/14/2016 final/07/14/2016
[2016-07-17 18:10] LABS: BASOPHIL 0.2 % (0-2.0); EOSINOPHIL 0.2 % (0-4.5); MCH 28.9 pg (25.7-33.7); MCHC 33.4 g/dl (32.0-36.0); MEAN CELL VOLUME 86.5 fl (80-96); MEAN PLT VOLUME 10.2 fl (7.5-11.1); NEUTROPHILS 87.5 % (42.8-82.8); PLATELET COUNT 102 K/MM3 (134-434); RDW 14.4 % (11.6-15.6); WHITE BLOOD COUNT 9.5 K/mm3 (4.0-10.0)
--- NOTE | 2016-07-17 18:45 | PN ---
Progress Note (short form) - Note Progress Note: Patient is POD #3 s/p bilateral breast reconstruction with HAYDEN flap immediately after bilateral mastectomy. Patient was seen today while sitting up in bed. Patient has been doing well. Pain well controlled. drinking clear liquid diet. Denies headache, chills, nausea/vomiting/diarrhea, or any urinary sxs. Patient has been oob and had bates removed and she is voiding well with no difficulty. She has been having the brenda hugger on her breasts but now off. Pt HCT did drop but and was transfuse rbc. On PE, she is A&O x 3. Interactive and cooperative. Bilateral breasts with appropriate swelling. Incision is covered by dermabond. Some erythema and ecchymosis around the incision site, especially noted on the IMF/Vertical junction on the right breast. Good cap refill on the flaps, Flaps are warm to touch, and doppler has great sound bilaterally. EHSAN drains holding suction well. Both drains with appropriate output amount. Abdomen with appropriate swelling. Incision is covered with steri strips. no surrounding erythema. A/P: POD #3 s/p bilateral breast reconstruction with HAYDEN flap immediately after bilateral mastectomy. Diet: Advance to regular for dinner. No caffeine, no chocolate. Hold off Lovenox this morning. OOB to chair as toelrated. Can walk slightly hunched over with bra on. bates d/c Temp - low grade, probably due to brenda hugger and transfusion. Pain: superintendent of schools d/c. tolerating pain well. Doppler: continue with q2 hr dopplers Will continue to monitor her closely. patient states she does not need VNS but we plan on d/c her wed or wednesday pending on her recovery.
[2016-07-18] MEDS ORDERED: IBUPROFEN 400 MG TABLET (FP) PO ONE (00:04)
[2016-07-18] MEDS ORDERED: IBUPROFEN 800 MG/8 ML IJ IVPB ONE (00:06)
[2016-07-18] MEDS: diazePAM 5 MG TABLET PO PRN ×2 (02:59→20:00)
[2016-07-18] MEDS: CEFAZOLIN (PRE-DOCKED) 50 ML IVPB SCH ×4 (03:00→21:04)
[2016-07-18] MEDS: ONDANSETRON 4 MG/2 ML VIAL IVPUSH PRN (03:39)
[2016-07-18] MEDS: oxyCODONE HCL 5 MG TABLET PO PRN (03:54)
[2016-07-18] MEDS: ACETAMINOPHEN 325 MG TABLET (FP) PO PRN (03:55)
[2016-07-18] MEDS ORDERED: PROMETHAZINE HCL 25 MG/1 ML VIAL IVPUSH ONE ×2 (04:36→17:45)
[2016-07-18] MEDS ORDERED: hydrALAZINE HCL 20 MG/ML VIAL IVPUSH ONE (05:21)
[2016-07-18] MEDS ORDERED: HYDROmorphone HCL CARPU-JECT 2 MG/1 ML DISP.SYRIN IVPB ONE (06:15)
[2016-07-18 06:18] LABS: BASOPHIL 0.3 % (0-2.0); EOSINOPHIL 0.1 % (0-4.5); MCH 29.7 pg (25.7-33.7); MCHC 34.4 g/dl (32.0-36.0); MEAN CELL VOLUME 86.2 fl (80-96); MEAN PLT VOLUME 9.8 fl (7.5-11.1); NEUTROPHILS 87.8 % (42.8-82.8); PLATELET COUNT 102 K/MM3 (134-434); RDW 14.4 % (11.6-15.6); WHITE BLOOD COUNT 10.3 K/mm3 (4.0-10.0)
[2016-07-18 06:56] LABS: ALBUMIN 2.5 g/dl (3.4-5.0); ANION GAP 10 (8-16); CO2 31 mmol/L (21-32); GLUCOSE,RANDOM 139 mg/dL (74-106); SGOT/AST 68 U/L (15-37); SGPT/ALT 47 U/L (12-78)
[2016-07-18 06:58] LABS: ALK PHOS 159 U/L (45-117); CALCIUM 8.6 mg/dL (8.5-10.1); COCKROFT - GAULT 109.5565; CREATININE 0.7 mg/dL (0.55-1.02); TOT PROT 5.3 g/dl (6.4-8.2)
--- NOTE | 2016-07-18 08:58 | PN ---
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 After counseling , the patient decided to undergoe bilateral mastectomies and chose to have bilateral HAYDEN reconstructions. - Current Medication List Current Medications: Active Medications Acetaminophen (Tylenol -) 650 mg PO Q6H PRN PRN Reason: FEVER OR PAIN Last Admin: 07/18/16 03:55 Dose: 650 mg Acetaminophen (Tylenol -) 650 mg PO Q6H PRN PRN Reason: PAIN Last Admin: 07/17/16 21:25 Dose: 650 mg Aspirin (Ecotrin -) 81 mg PO DAILY ANUP Benzocaine/Menthol (Cepacol Lozenge -) 1 each MM PRN PRN PRN Reason: SORE THROAT Diazepam (Valium -) 5 mg PO Q8H PRN PRN Reason: ANXIETY Last Admin: 07/18/16 02:59 Dose: 5 mg Docusate Sodium (Colace -) 100 mg PO BID ANUP Last Admin: 07/17/16 22:17 Dose: 100 mg Cefazolin Sodium (Ancef 1gm Ivpb (Pre-Docked)) 50 mls @ 100 mls/hr IVPB Q6H-IV ANUP Last Admin: 07/18/16 03:00 Dose: 100 mls/hr Losartan Potassium (Cozaar -) 50 mg PO DAILY ANUP Last Admin: 07/17/16 09:52 Dose: 50 mg Ondansetron HCl (Zofran Injection) 4 mg IVPUSH Q6H PRN PRN Reason: NAUSEA AND/OR VOMITING Last Admin: 07/18/16 03:39 Dose: 4 mg Oxycodone HCl (Roxicodone -) 5 mg PO Q6H PRN PRN Reason: PAIN Last Admin: 07/17/16 21:25 Dose: 5 mg Oxycodone HCl (Roxicodone -) 10 mg PO Q6H PRN PRN Reason: PAIN Last Admin: 07/18/16 03:54 Dose: 10 mg Tramadol HCl (Ultram -) 50 mg PO Q4H PRN PRN Reason: PAIN - Objective Vital Signs: Vital Signs Temperature 98.6 F 07/18/16 04:00 Pulse Rate 65 07/18/16 08:00 Respiratory Rate 14 07/18/16 08:00 Blood Pressure 106/71 07/18/16 08:00 O2 Sat by Pulse Oximetry (%) 99 07/14/16 21:42 Constitutional: Yes: Well Nourished, No Distress Eyes: Yes: WNL HENT: Yes: WNL Neck: Yes: WNL Cardiovascular: Yes: Regular Rate and Rhythm Respiratory: Yes: Regular Gastrointestinal: Yes: Normal Bowel Sounds, Soft ...Rectal Exam: Yes: Deferred Genitourinary: Yes: WNL Breast(s): Yes: Other (Breast flaps warm and viable. Good dopplerable pulses. Echymosis on skin of breast and flap but stable. 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 She had a difficult night last night with back pain and nausea. Now improved this AM with Zofran and dilaudid IV. She is a bit drowsy this AM but arousable. Skin flaps and HAYDEN with satbel ecchymis and H/H now improved and stable after 2 units PRBC's 2 days ago. She is tolerating po. Continue OOB today and continue flap checks. Will keep in ICU 1 more day for flap checks and monitor H/H. If stable can transfer to floor tomorrow AM. Will restart ASA and start tramadol for pain. Continue IV antibiotics. Code(s): C50.911 - MALIGNANT NEOPLASM OF UNSP SITE OF RIGHT FEMALE BREAST Qualifiers: Breast location: upper outer quadrant of breast Estrogen receptor status: positive Patient sex: female Qualified Code(s): C50.411 - Malignant neoplasm of upper-outer quadrant of right female breast; Z17.0 - Estrogen receptor positive status [ER+]
[2016-07-18] MEDS ORDERED: KETOROLAC TROMETHAMINE 10 MG TABLET PO PRN (08:59)
--- NOTE | 2016-07-18 09:08 | PN ---
Progress Note (short form) - Note Progress Note: Mrs. Saxena is now POD#4 s/p bilateral mastectomies and right SLN Bx with immediate bilateral HAYDEN flap reconstruction. Postoperatively, she has required 2U PRBC. Her Hct this morning is stable (26.5). Overnight, she had pain and nausea/vomiting issues and required IV dilaudid. Tmax 102.5 Tcurrent 98.6 VSS I/O: 700/1390 UO:900 Romulo Drains: Left breast 125 Right breast 70 Abdominal: 220/75 On exam, she is sedated but arousable and in no distress Bilateral breast flap skin paddles are soft, warm with biphasic doppler signals. There is stable ecchymosis of the skin paddles and surrounding mastectomy skin flaps Abdomen is soft and appropriately swollen Umbilicus ecchymotic but appears viable Lower abdominal incision intact with steristrips in place A/P: 1) Q4 hour flap checks 2) OOB and ambulate 3) Restart ASA 81mg 4) Start Tramadol and Toradol 5) Continue IV Abx 6) Will keep her in ICU for now and plan for transfer to floor tomorrow and home Wednesday
[2016-07-18] MEDS: DOCUSATE SODIUM 100 MG CAPSULE (FP) PO SCH ×2 (10:21→23:46)
[2016-07-18] MEDS: ASPIRIN COATED 81 MG TABLET.EC PO SCH (10:21)
--- NOTE | 2016-07-18 10:52 | PN ---
Progress Note (short form) - Note Progress Note: PULMONARY/CCM Pt seen and examined in the ICU. Still some pain. Intermittent fevers. No shortness of breath or chest pain. Last Vital Signs Temp Pulse Resp BP Pulse Ox 98.6 F 65 14 106/71 99 07/18/16 04:00 07/18/16 08:00 07/18/16 08:00 07/18/16 08:00 07/14/16 21:42 Intake & Output 07/15/16 07/16/16 07/17/16 07/18/16 23:59 23:59 23:59 23:59 Intake Total 3500 1710 700 550 Output Total 1173 2725 1390 860 Balance 2327 -1015 -690 -310 Gen: NAD at rest Heart: RRR Chest: +drains with serosanguinous fluid Lung: decreased breath sounds at the bases Abd: soft, nontender Ext: no edema CBC, BMP 07/18/16 05:20 07/18/16 05:20 Active Medications Acetaminophen (Tylenol -) 650 mg PO Q6H PRN PRN Reason: FEVER OR PAIN Last Admin: 07/18/16 03:55 Dose: 650 mg Acetaminophen (Tylenol -) 650 mg PO Q6H PRN PRN Reason: PAIN Last Admin: 07/17/16 21:25 Dose: 650 mg Aspirin (Ecotrin -) 81 mg PO DAILY ANUP Last Admin: 07/18/16 10:21 Dose: 81 mg Benzocaine/Menthol (Cepacol Lozenge -) 1 each MM PRN PRN PRN Reason: SORE THROAT Diazepam (Valium -) 5 mg PO Q8H PRN PRN Reason: ANXIETY Last Admin: 07/18/16 02:59 Dose: 5 mg Docusate Sodium (Colace -) 100 mg PO BID ANUP Last Admin: 07/18/16 10:21 Dose: 100 mg Cefazolin Sodium (Ancef 1gm Ivpb (Pre-Docked)) 50 mls @ 100 mls/hr IVPB Q6H-IV ANUP Last Admin: 07/18/16 10:22 Dose: 100 mls/hr Ketorolac Tromethamine (Toradol) 10 mg PO Q6HPO PRN PRN Reason: PAIN LEVEL 1-5 Stop: 07/23/16 11:59 Losartan Potassium (Cozaar -) 50 mg PO DAILY ANUP Last Admin: 07/17/16 09:52 Dose: 50 mg Ondansetron HCl (Zofran Injection) 4 mg IVPUSH Q6H PRN PRN Reason: NAUSEA AND/OR VOMITING Last Admin: 07/18/16 03:39 Dose: 4 mg Oxycodone HCl (Roxicodone -) 5 mg PO Q6H PRN PRN Reason: PAIN Last Admin: 07/17/16 21:25 Dose: 5 mg Oxycodone HCl (Roxicodone -) 10 mg PO Q6H PRN PRN Reason: PAIN Last Admin: 07/18/16 03:54 Dose: 10 mg Tramadol HCl (Ultram -) 50 mg PO Q4H PRN PRN Reason: PAIN A/P s/p Bilateral Mastectomy/Reconstruction with HAYDEN flap Acute Blood Loss Anemia - monitor H/H - flap monitoring - pain control - incentive spirometry - PO as tolerated - DVT prophylaxis
[2016-07-18] MEDS: traMADol HCL 50 MG TABLET PO PRN ×2 (11:04→16:25)
[2016-07-18] MEDS: LOSARTAN POTASSIUM 50 MG TABLET (FP) PO SCH (16:25)
[2016-07-18] MEDS ORDERED: LIDOCAINE 5% TOPICAL PATCH TP ONE (17:45)
[2016-07-18] MEDS: KETOROLAC TROMETHAMINE 30 MG/1 ML VIAL IVPB PRN (22:25)
[2016-07-18] MEDS ORDERED: hydrALAZINE HCL 20 MG/ML VIAL ONE (22:44)
[2016-07-18] MEDS ORDERED: hydrALAZINE HCL 20 MG/ML VIAL IVPUSH PRN (23:33)
[2016-07-18] MEDS ORDERED: BISACODYL 10 MG SUPP.RECT PR ONE (23:34)
[2016-07-18] MEDS ORDERED: SENNOSIDES 8.6MG TABLET (FP) PO ONE (23:45)
[2016-07-19] MEDS: CEFAZOLIN (PRE-DOCKED) 50 ML IVPB SCH ×2 (04:42→20:37)
[2016-07-19] MEDS ORDERED: BISACODYL 10 MG SUPP.RECT RC ONE (05:50)
[2016-07-19] MEDS: KETOROLAC TROMETHAMINE 30 MG/1 ML VIAL IVPB PRN ×3 (06:00→18:00)
[2016-07-19 06:30] LABS: BASOPHIL 0.3 % (0-2.0); EOSINOPHIL 0.3 % (0-4.5); MCH 29.2 pg (25.7-33.7); MCHC 33.6 g/dl (32.0-36.0); MEAN CELL VOLUME 86.8 fl (80-96); MEAN PLT VOLUME 9.6 fl (7.5-11.1); NEUTROPHILS 84.6 % (42.8-82.8); PLATELET COUNT 163 K/MM3 (134-434); RDW 14.5 % (11.6-15.6); WHITE BLOOD COUNT 9.1 K/mm3 (4.0-10.0)
[2016-07-19] MEDS: ONDANSETRON 4 MG/2 ML VIAL IVPUSH PRN (06:48)
[2016-07-19] MEDS ORDERED: BACLOFEN 10 MG TABLET (FP) PO PRN (09:11)
--- NOTE | 2016-07-19 09:37 | PN ---
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 After counseling , the patient decided to undergoe bilateral mastectomies and chose to have bilateral HAYDEN reconstructions. - Current Medication List Current Medications: Active Medications Acetaminophen (Tylenol -) 650 mg PO Q6H PRN PRN Reason: FEVER OR PAIN Last Admin: 07/18/16 03:55 Dose: 650 mg Acetaminophen (Tylenol -) 650 mg PO Q6H PRN PRN Reason: PAIN Last Admin: 07/17/16 21:25 Dose: 650 mg Aspirin (Ecotrin -) 81 mg PO DAILY ANUP Last Admin: 07/18/16 10:21 Dose: 81 mg Baclofen (Lioresal -) 10 mg PO Q8H PRN PRN Reason: MUSCLE SPASMS Benzocaine/Menthol (Cepacol Lozenge -) 1 each MM PRN PRN PRN Reason: SORE THROAT Diazepam (Valium -) 5 mg PO Q8H PRN PRN Reason: ANXIETY Last Admin: 07/18/16 20:00 Dose: 5 mg Docusate Sodium (Colace -) 100 mg PO BID ANUP Last Admin: 07/18/16 23:46 Dose: 100 mg Hydralazine HCl (Apresoline Injection -) 10 mg IVPUSH Q6H PRN PRN Reason: HYPERTENSION Last Admin: 07/19/16 00:00 Dose: 10 mg Cefazolin Sodium (Ancef 1gm Ivpb (Pre-Docked)) 50 mls @ 100 mls/hr IVPB Q6H-IV ANUP Last Admin: 07/19/16 04:42 Dose: 100 mls/hr Ketorolac Tromethamine (Toradol) 10 mg PO Q6HPO PRN PRN Reason: PAIN LEVEL 1-5 Stop: 07/23/16 11:59 Ketorolac Tromethamine (Toradol Injection -) 30 mg IVPB Q6H PRN Stop: 07/23/16 22:09 Last Admin: 07/19/16 06:00 Dose: 30 mg Lidocaine (Lidoderm Patch -) 1 patch TP DAILY [facility] Losartan Potassium (Cozaar -) 50 mg PO DAILY ANUP Last Admin: 07/18/16 16:25 Dose: 50 mg Miscellaneous (Lidoderm Patch Removal) 1 each MC DAILY@2200 [facility] Ondansetron HCl (Zofran Injection) 4 mg IVPUSH Q6H PRN PRN Reason: NAUSEA AND/OR VOMITING Last Admin: 07/19/16 06:48 Dose: 4 mg Senna (Senna -) 2 tab PO HS [facility] Tramadol HCl (Ultram -) 50 mg PO Q4H PRN PRN Reason: PAIN Last Admin: 07/18/16 16:25 Dose: 50 mg - Objective Vital Signs: Vital Signs Temperature 98.8 F 07/19/16 06:00 Pulse Rate 82 07/19/16 06:00 Respiratory Rate 25 H 07/19/16 06:00 Blood Pressure 158/85 07/19/16 06:00 O2 Sat by Pulse Oximetry (%) 99 07/14/16 21:42 Constitutional: Yes: Well Nourished, No Distress, Calm Eyes: Yes: WNL HENT: Yes: WNL Neck: Yes: WNL Cardiovascular: Yes: Regular Rate and Rhythm Respiratory: Yes: Regular, CTA Bilaterally Gastrointestinal: Yes: Normal Bowel Sounds, Soft ...Rectal Exam: Yes: Deferred Genitourinary: Yes: WNL Breast(s): Yes: Other (Skin flaps and HAYDEN flap with stable ecchymosis but soft and excellent doppler signals. Drains functioning well) Musculoskeletal: Yes: Muscle Pain (still c/o back pain spasms) Extremities: Yes: WNL Integumentary: Yes: WNL Wound/Incision: Yes: Clean/Dry, Well Approximated, Other (bdominal wound clean, dry, and intact.) Neurological: Yes: Alert, Oriented Psychiatric: Yes: WNL Labs: CBC, BMP 07/19/16 06:10 07/18/16 05:20 Problem List - Problems (1) Genetic predisposition to malignant neoplasm of breast Code(s): Z15.01 - GENETIC SUSCEPTIBILITY TO MALIGNANT NEOPLASM OF BREAST (2) Breast cancer, right breast Assessment/Plan: The patient is doing well POD#5 after bilateral mastectomies and HAYDEN flap reconstructions. She had a better night with improved nausea but has continued back pain/spasms. Skin flaps and HAYDEN with stable ecchymosis and H/H now stable. She is tolerating po. She has good pain control. Continue OOB today and continue flap checks. Drain output stable and not too bloody. Will switch to po antibiotics and will keep IV for now but can remove if this IV no longer useable. Will give baclofen for back pain and will try mirolax for constipation. Stable for transfer to floor today and can likely discharge tomorrow AM if doing well. Will go home on baby ASA, cefadoxil, percocet for pain, zofran for nausea, and valium for back spasms. Code(s): C50.911 - MALIGNANT NEOPLASM OF UNSP SITE OF RIGHT FEMALE BREAST Qualifiers: Breast location: upper outer quadrant of breast Estrogen receptor status: positive Patient sex: female Qualified Code(s): C50.411 - Malignant neoplasm of upper-outer quadrant of right female breast; Z17.0 - Estrogen receptor positive status [ER+]
[2016-07-19] MEDS ORDERED: POLYETHYLENE GLYCOL 3350 119 GM BTL PO ONE (09:45)
[2016-07-19] MEDS: LOSARTAN POTASSIUM 50 MG TABLET (FP) PO SCH (10:28)
[2016-07-19] MEDS: LIDOCAINE 5% TOPICAL PATCH TP SCH (10:28)
[2016-07-19] MEDS: DOCUSATE SODIUM 100 MG CAPSULE (FP) PO SCH ×2 (10:28→22:52)
[2016-07-19] MEDS: ASPIRIN COATED 81 MG TABLET.EC PO SCH (10:28)
--- NOTE | 2016-07-19 11:13 | PN ---
Progress Note (short form) - Note Progress Note: PULMONARY/CCM Pt seen and examined in the ICU. Still with pain especially in back. No further fevers. No shortness of breath or chest pain. Last Vital Signs Temp Pulse Resp BP Pulse Ox 98.8 F 82 25 H 158/85 99 07/19/16 06:00 07/19/16 06:00 07/19/16 06:00 07/19/16 06:00 07/14/16 21:42 Gen: NAD at rest Heart: RRR Chest: +drains with serosanguinous fluid Lung: decreased breath sounds at the bases Abd: soft, nontender Ext: no edema CBC, BMP 07/19/16 06:10 07/18/16 05:20 Active Medications Acetaminophen (Tylenol -) 650 mg PO Q6H PRN PRN Reason: FEVER OR PAIN Last Admin: 07/18/16 03:55 Dose: 650 mg Acetaminophen (Tylenol -) 650 mg PO Q6H PRN PRN Reason: PAIN Last Admin: 07/17/16 21:25 Dose: 650 mg Aspirin (Ecotrin -) 81 mg PO DAILY ANUP Last Admin: 07/19/16 10:28 Dose: 81 mg Baclofen (Lioresal -) 10 mg PO Q8H PRN PRN Reason: MUSCLE SPASMS Benzocaine/Menthol (Cepacol Lozenge -) 1 each MM PRN PRN PRN Reason: SORE THROAT Cefaclor (Ceclor -) 250 mg PO BID ANUP Diazepam (Valium -) 5 mg PO Q8H PRN PRN Reason: ANXIETY Last Admin: 07/18/16 20:00 Dose: 5 mg Docusate Sodium (Colace -) 100 mg PO BID ANUP Last Admin: 07/19/16 10:28 Dose: 100 mg Hydralazine HCl (Apresoline Injection -) 10 mg IVPUSH Q6H PRN PRN Reason: HYPERTENSION Last Admin: 07/19/16 00:00 Dose: 10 mg Ketorolac Tromethamine (Toradol) 10 mg PO Q6HPO PRN PRN Reason: PAIN LEVEL 1-5 Stop: 07/23/16 11:59 Ketorolac Tromethamine (Toradol Injection -) 30 mg IVPB Q6H PRN Stop: 07/23/16 22:09 Last Admin: 07/19/16 06:00 Dose: 30 mg Lidocaine (Lidoderm Patch -) 1 patch TP DAILY [facility] Last Admin: 07/19/16 10:28 Dose: 1 patch Losartan Potassium (Cozaar -) 50 mg PO DAILY [facility] Last Admin: 07/19/16 10:28 Dose: 50 mg Miscellaneous (Lidoderm Patch Removal) 1 each MC DAILY@2200 [facility] Ondansetron HCl (Zofran Injection) 4 mg IVPUSH Q6H PRN PRN Reason: NAUSEA AND/OR VOMITING Last Admin: 07/19/16 06:48 Dose: 4 mg Senna (Senna -) 2 tab PO HS [facility] Tramadol HCl (Ultram -) 50 mg PO Q4H PRN PRN Reason: PAIN Last Admin: 07/18/16 16:25 Dose: 50 mg A/P s/p Bilateral Mastectomy/Reconstruction with HAYDEN flap Acute Blood Loss Anemia - monitor H/H - flap monitoring - pain control - incentive spirometry - PO as tolerated - DVT prophylaxis
[2016-07-19] MEDS: CEFACLOR 250 MG CAPSULE PO SCH ×2 (11:56→23:18)
[2016-07-19] MEDS: ACETAMINOPHEN 325 MG TABLET (FP) PO PRN (20:30)
[2016-07-19] MEDS ORDERED: LIDOCAINE PATCH REMOVAL MC SCH (22:00)
[2016-07-19] MEDS ORDERED: SENNOSIDES 8.6MG TABLET (FP) PO SCH (22:00)
[2016-07-19] MEDS ORDERED: PT OWN MED DRAWER 7, Y5N ONE (22:35)
[2016-07-19] MEDS: HYDROmorphone *PCA* 10MG/50ML DISP.SYRIN PCA SCH (23:30)
[2016-07-19] MEDS ORDERED: SENNOSIDES 8.6MG TABLET (FP) PO ONE (23:35)
[2016-07-20] MEDS: KETOROLAC TROMETHAMINE 30 MG/1 ML VIAL IVPB PRN (04:27)
[2016-07-20] MEDS: ACETAMINOPHEN 325 MG TABLET (FP) PO PRN (05:10)
[2016-07-20 07:54] LABS: ALBUMIN 2.1 g/dl (3.4-5.0); ALK PHOS 167 U/L (45-117); ANION GAP 14 (8-16); BILIRUBIN,TOTAL 0.8 mg/dL (0.2-1.0); CALCIUM 8.2 mg/dL (8.5-10.1); CO2 26 mmol/L (21-32); COCKROFT - GAULT 109.5565; CREATININE 0.7 mg/dL (0.55-1.02); GLUCOSE,RANDOM 107 mg/dL (74-106); MAGNESIUM 1.9 mg/dL (1.8-2.4); PHOSPHOROUS 2.8 mg/dL (2.5-4.9); SGOT/AST 25 U/L (15-37); SGPT/ALT 23 U/L (12-78); TOT PROT 4.8 g/dl (6.4-8.2)
--- NOTE | 2016-07-20 07:55 | PN ---
Progress Note (short form) - Note Progress Note: POD#6 s/p bilateral mastectomies, right SLNBx and immediate HAYDEN flap reconstruction. Required 2U PRBC postop. No signs of surgical site bleeding, but there has been extensive ecchymosis of mastectomy flaps and abdomen. Hct stable over past 24 hours. AVSS Bilateral breasts soft with improving ecchymosis. Biphasic doppler signals bilaterally. Abdomen soft, ND. Incision C/D/I. Umbilicus with ecchymosis A/P: 1) F/U CBC today 2) If stable, plan to D/C home today (patient has refused VNS services)
[2016-07-20 08:06] LABS: BASOPHIL 0.2 % (0-2.0); EOSINOPHIL 1.3 % (0-4.5); MCHC 33.8 g/dl (32.0-36.0); MEAN PLT VOLUME 9.1 fl (7.5-11.1); NEUTROPHILS 81.9 % (42.8-82.8); PLATELET COUNT 161 K/MM3 (134-434); RDW 14.6 % (11.6-15.6); WHITE BLOOD COUNT 8.6 K/mm3 (4.0-10.0)
--- NOTE | 2016-07-20 08:46 | PN ---
Progress Note, Physician Chief Complaint: s/p bilateral mastectomy with bilateral HAYDEN reconstruction POD #6 History of Present Illness: Patient seen this am and had a hard time sleeping but does report good pain control. She is tolerating po well and is otherwise without complaints this am. - Current Medication List Current Medications: Active Medications Acetaminophen (Tylenol -) 650 mg PO Q6H PRN PRN Reason: FEVER OR PAIN Last Admin: 07/20/16 05:10 Dose: 650 mg Acetaminophen (Tylenol -) 650 mg PO Q6H PRN PRN Reason: PAIN Last Admin: 07/17/16 21:25 Dose: 650 mg Aspirin (Ecotrin -) 81 mg PO DAILY [facility] Last Admin: 07/19/16 10:28 Dose: 81 mg Baclofen (Lioresal -) 10 mg PO Q8H PRN PRN Reason: MUSCLE SPASMS Last Admin: 07/19/16 16:04 Dose: 10 mg Benzocaine/Menthol (Cepacol Lozenge -) 1 each MM PRN PRN PRN Reason: SORE THROAT Cefaclor (Ceclor -) 250 mg PO BID [facility] Last Admin: 07/19/16 23:18 Dose: 250 mg Diazepam (Valium -) 5 mg PO Q8H PRN PRN Reason: ANXIETY Last Admin: 07/18/16 20:00 Dose: 5 mg Docusate Sodium (Colace -) 100 mg PO BID [facility] Last Admin: 07/19/16 22:52 Dose: 100 mg Hydralazine HCl (Apresoline Injection -) 10 mg IVPUSH Q6H PRN PRN Reason: HYPERTENSION Last Admin: 07/19/16 00:00 Dose: 10 mg Ketorolac Tromethamine (Toradol) 10 mg PO Q6HPO PRN PRN Reason: PAIN LEVEL 1-5 Stop: 07/23/16 11:59 Ketorolac Tromethamine (Toradol Injection -) 30 mg IVPB Q6H PRN Stop: 07/23/16 22:09 Last Admin: 07/20/16 04:27 Dose: 30 mg Lidocaine (Lidoderm Patch -) 1 patch TP DAILY [facility] Last Admin: 07/19/16 10:28 Dose: 1 patch Losartan Potassium (Cozaar -) 50 mg PO DAILY [facility] Last Admin: 07/19/16 10:28 Dose: 50 mg Miscellaneous (Lidoderm Patch Removal) 1 each MC DAILY@2200 [facility] Last Admin: 07/19/16 22:56 Dose: 1 each Ondansetron HCl (Zofran Injection) 4 mg IVPUSH Q6H PRN PRN Reason: NAUSEA AND/OR VOMITING Last Admin: 07/19/16 06:48 Dose: 4 mg Senna (Senna -) 2 tab PO HS [facility] Last Admin: 07/19/16 22:52 Dose: 2 tab Tramadol HCl (Ultram -) 50 mg PO Q4H PRN PRN Reason: PAIN Last Admin: 07/18/16 16:25 Dose: 50 mg - Objective Vital Signs: Vital Signs Temperature 99.1 F 07/20/16 05:46 Pulse Rate 83 07/20/16 05:46 Respiratory Rate 20 07/20/16 05:46 Blood Pressure 145/83 07/20/16 05:46 O2 Sat by Pulse Oximetry (%) 96 07/19/16 21:00 Constitutional: Yes: Well Nourished, Calm Breast(s): Yes: Other (Flaps with resolving ecchymosis. Incisions are clean without discharge or erythema. Xeroform in place. No tension noted. EHSAN with serosanginous discharge noted bilaterally.) Wound/Incision: Yes: Other ( Abdominal incisions clean with umbilical ecchymosis noted.) Labs: CBC, BMP 07/20/16 06:00 07/20/16 06:00 Problem List - Problems (1) Breast cancer, right breast Code(s): C50.911 - MALIGNANT NEOPLASM OF UNSP SITE OF RIGHT FEMALE BREAST Qualifiers: Breast location: upper outer quadrant of breast Estrogen receptor status: positive Patient sex: female Qualified Code(s): C50.411 - Malignant neoplasm of upper-outer quadrant of right female breast; Z17.0 - Estrogen receptor positive status [ER+] Assessment/Plan Plan Patient seen by Dr. Ahumada this am. Patient will be discharged if H/H is stable Patient to followup at the end of the week with Dr. Mcconnell and next week with Dr. Ahumada Teach EHSAN monitoring.
[2016-07-20 09:28] VITALS: BP 144/75; PULSE 71; TEMP 98.1
[2016-07-20] MEDS: ASPIRIN COATED 81 MG TABLET.EC PO SCH (09:43)
[2016-07-20] MEDS: DOCUSATE SODIUM 100 MG CAPSULE (FP) PO SCH (09:43)
[2016-07-20] MEDS: LOSARTAN POTASSIUM 50 MG TABLET (FP) PO SCH (09:43)
[2016-07-20] MEDS: CEFACLOR 250 MG CAPSULE PO SCH (09:43)
[2016-07-20] MEDS: LIDOCAINE 5% TOPICAL PATCH TP SCH (09:44)
--- NOTE | 2016-07-21 10:56 | OP ---
DATE OF OPERATION: 07/14/2016 PREOPERATIVE DIAGNOSIS: Right breast cancer. POSTOPERATIVE DIAGNOSIS: Right breast cancer. OPERATION: Bilateral deep inferior epigastric printed circuit board assembly repairer flap breast reconstruction; SPY angiography; bilateral transabdominal preperitoneal anesthetic block. SURGEON: Jonah Pena MD COSURGEON: Karlos Ahumada MD; Jairon Charles MD ADVERTISING SALES AGENT: Erlin Vargas FLUIDS: Crystalloid. ESTIMATED BLOOD LOSS: 250 mL. URINE OUTPUT: Mathis catheter. COMPLICATIONS: None. DISPOSITION: Stable to PACU. JONAH PENA MD [id number]
== END 2016-07-20 10:29 | disposition home health service (06) | DRG 580 ==
LOC: JSAMEDAYSX 06:10 → JICU 20:11 → J7W 07-19 18:57
PROVIDERS: ADMIT Surgery Surgical Oncology; ATTEND Surgery Surgical Oncology
PROC: 0HTV0ZZ Resection of Bilateral Breast, Open Approach (ICD-10-PCS; principal; 2016-07-14 08:00)
PROC: 07B50ZX Excision of Right Axillary Lymphatic, Open Approach, Diagnostic (ICD-10-PCS; 2016-07-14 08:00)
PROC: 0HRV077 Replacement of Bilateral Breast using Deep Inferior Epigastric Artery Perforator Flap, Open Approach (ICD-10-PCS; 2016-07-14 08:00)
PROC: 4A1GXSH Monitoring of Skin and Breast Vascular Perfusion using Indocyanine Green Dye, External Approach (ICD-10-PCS; 2016-07-14 08:00)
PROC: 30233N1 Transfusion of Nonautologous Red Blood Cells into Peripheral Vein, Percutaneous Approach (ICD-10-PCS; 2016-07-16)
DX: C50.411 Malignant neoplasm of upper-outer quadrant of right female breast (principal); D62 Acute posthemorrhagic anemia; Z15.01 Genetic susceptibility to malignant neoplasm of breast; I10 Essential (primary) hypertension; Z80.3 Family history of malignant neoplasm of breast; Z17.0 Estrogen receptor positive status [ER+]; R50.9 Fever, unspecified
CPT/HCPCS: 36415; 36430; 76641-TC-50; 76705-TC; 78195-TC; 80053; 83735; 84100; 84484; 85025; 85027; 86850; 86900; 86901; 86922; 88307-TC; 88331-TC; 88341-TC; 94010; 94760; A9541; J0475; J1644; P9038; P9058

== ENCOUNTER 2016-08-18 05:59 | Day surgery (SDC) | payer OTHER ==
[2016-08-17 10:02] VITALS: BMI 32.5
[2016-08-18] MEDS ORDERED: MINERAL OIL 25 ML OIL ONE ×3 (07:10→09:37)
[2016-08-18] MEDS ORDERED: SUCCINYLCHOLINE CHLORIDE 200 MG/10 ML VIAL ONE (07:30)
[2016-08-18] MEDS ORDERED: PROPOFOL 20 ML ONE ×4 (07:30→09:19)
[2016-08-18] MEDS ORDERED: MIDAZOLAM HCL 2 MG/2 ML SINGLE DOSE VIAL ONE (07:30)
[2016-08-18] MEDS ORDERED: GENTAMICIN SO4 80 MG/2 ML VIAL ONE (07:41)
[2016-08-18] MEDS ORDERED: ceFAZolin SODIUM 1 GM VIAL ONE (07:41)
[2016-08-18] MEDS ORDERED: DEXAMETHASONE SOD PHOSPHATE 4 MG/1 ML VIAL ONE (07:57)
[2016-08-18] MEDS ORDERED: PHENYLEPHRINE HCL 10 MG/1 ML SINGLE DOSE VIAL ONE (07:57)
[2016-08-18] MEDS ORDERED: ONDANSETRON 4 MG/2 ML VIAL ONE ×2 (07:57→10:16)
[2016-08-18] MEDS ORDERED: ePHEDrine SULFATE 50 MG/1 ML AMPULE ONE (08:33)
[2016-08-18] MEDS ORDERED: BACITRACIN 15 GM TUBE TOPICAL OINTMENT ONE (09:12)
[2016-08-18] MEDS ORDERED: BUPIVACAINE HCL/EPINEPHRINE/PF 30 ML VIAL IJ ONE (09:47)
[2016-08-18] MEDS ORDERED: ONDANSETRON 4 MG/2 ML VIAL IVPUSH PRN (10:17)
[2016-08-18] MEDS ORDERED: PROMETHAZINE HCL 25 MG/1 ML VIAL IVPUSH PRN (10:17)
[2016-08-18] MEDS ORDERED: oxyCODONE HCL 5 MG TABLET ONE (11:27)
[2016-08-18] MEDS ORDERED: oxyCODONE HCL 5 MG TABLET PO PRN ×2 (11:41)
[2016-08-18 13:09] VITALS: BP 95/70; PULSE 93; TEMP 98
--- NOTE | 2016-08-20 15:13 | PATH ---
Surgical Pathology Report Patient Name: ELLIE BARTH [facility]. Rec. #: [id number] /Age/Gender: 1950 (Age: 66) / F Account: [id number] Location: [facility] AMB[facility] Taken: 08/18/2016 Received: 08/18/2016 Reported: 08/20/2016 Physicians: Karlos Cruz M.D. Specimen(s) Received DEBRIDED SKIN FROM BILATERAL BREAST Clinical History Breast cancer Final Diagnosis SKIN, BILATERAL BREAST AND ABDOMEN, DEBRIDEMENT: FRAGMENTS OF ULCERATED SKIN WITH GANGRENOUS NECROSIS, ACUTE AND CHRONIC INFLAMMATION AND FOCAL INFLAMED GRANULATION TISSUE. Electronically Signed Derrick Sal M.D. Gross Description Received in formalin labeled "debrided skin from bilateral breast and abdomen" is a 3.2 x 3.0 x 0.3 cm aggregate of gould-broussard, necrotic skin and soft tissue fragments. A traffic representative portion is submitted in one cassette. /08/19/201608/19/2016
--- NOTE | 2016-08-31 11:17 | OP ---
DATE OF OPERATION: 08/18/2016 PREOPERATIVE DIAGNOSES: 1. Personal history of breast cancer. 2. Acquired abscess of bilateral breast and nipple. 3. Bilateral full thickness mastectomy skin flap necrosis. 4. Open wound of abdomen. POSTOPERATIVE DIAGNOSES: 1. Personal history of breast cancer. 2. Acquired abscess of bilateral breast and nipple. 3. Bilateral full thickness mastectomy skin flap necrosis. 4. Open wound of abdomen. PROCEDURES: 1. Irrigation (300 cm2). 2. Irrigation and debridement of left breast (300 cm2). 3. Spit-thickness skin graft from left thigh to bilateral breasts (600 cm2). 4. Debridement and closure of abdominal wound (5 cm). 5. Spit-thickness skin graft to umbilicus. ATTENDING SURGEON: Graciela Ahumada MD CO-SURGEON: Jairon Charles MD ANESTHESIA: General endotracheal. ESTIMATED BLOOD LOSS: 20 mL. SPECIMEN: Right and left breast mastectomy flap skin to pathology. DRAINS: A No. 15 round Azam drain x1 to abdomen. COMPLICATIONS: None. CONDITION: Stable to recovery room, extubated. INDICATIONS: The patient is a 66-year-old female with a recent diagnosis of breast cancer who also has a genetic mutation in the BRCA gene. She underwent bilateral nonnipple-sparing mastectomies and immediate autologous reconstruction using deep inferior epigastric imaging manager flaps. The imaging manager flaps have done quite well; however, the patient has developed full thickness loss of a large portion of her bilateral mastectomy flaps. In addition, the patient has developed open wounds of her abdomen and umbilicus. The patient has been previously debrided and then brought back to the operating room today for further debridement and spit-thickness skin grafting. The risks, benefits, and alternatives of the surgery were discussed with the patient and her in detail, and all questions were answered. The risks include, but are not limited to, bleeding, infection, pain, need for revision or further surgery, partial or complete flap loss, damage to neighboring structures including nerves, arteries, veins, and tendons. The patient understands these risks and has elected to proceed with surgery. DESCRIPTION OF PROCEDURE: After appropriate identification and marking of the patient in the preoperative holding area, the patient was transported to the operating room and placed supine on the table where all noninvasive anesthesia monitors were applied. Intravenous access was established. General anesthesia was administered, and the patient was intubated without difficulty. SCD boots were applied to the bilateral extremities. Intravenous antibiotics were then given. The patient's bilateral breasts as well as abdomen and left thigh were prepped and draped in the usual sterile fashion. After a time-out was performed, Dr. Charlse and I began working independently as co-surgeons with separate instrument set ups. Attention was first turned towards the right breast where an excisional debridement was performed. The wound was noted to measure 10 cm in width and 30 cm in length. A No. 10 blade was used to sharply debride the necrotic skin edges. A combination of a curette and a No. 10 blade was then used in order to debride the open wound down to healthy, bleeding tissue. After this was completed, attention was turned toward the left breast where the same procedure was performed, and therefore, only one side will be dictated. The left-sided wound measurements were noted to be equal to the right for a total surface area of 300 cm2 per breast. Once the bilateral breast debridements were completed, attention was turned toward the left anterolateral thigh. The Tyron dermatome was used to harvest spit-thickness skin graft from the anterolateral thigh. There was noted to be a full-thickness cut in the proximal end of the skin graft harvest site, and this was repaired in layers using a 3-0 PDS in a buried deep dermal fashion followed by a 4-0 nylon in a simple running fashion. Once this was repaired, the Tyron dermatome was brought back onto the field, and spit-thickness skin graft measuring 15/100 inch was harvested from the left anterolateral thigh. Two separate strips of skin graft were required. The skin graft was then meshed in a 1:1.5 fashion on the back table. It was then brought up to bilateral breasts where it was placed dermis side down. The skin grafts were cut to the size of the wound and then were secured to the skin edges using a 4-0 plain gut in a simple running fashion. Once this was completed, attention was turned towards the umbilicus as well as the abdominal wound. The abdominal wound was noted to measure 5 cm in length. A No. 15 blade was used to excise the skin edges circumferentially around the wound, and a curette was used to debride the sidewalls in the base of the wound. The skin flaps were then reapproximated and closed in layers using a 3-0 PDS in a buried deep dermal fashion followed by a 4-0 nylon in a simple running fashion. Once this was completed, the umbilicus was debrided sharply using a combination of a No. 15 blade as well as Metzenbaum scissors. All of the skin from the umbilicus was noted to be necrotic. Once healthy, bleeding tissue along the stalk was encountered, the curette was used to debride both the roof as well as the floor of the abdominal skin flaps. A No. 15 round Azam drain was placed in the abdominal pocket and brought out through a separate stab incision along the left lateral side just inferior to the abdominal closure and secured to the skin with a 3-0 nylon suture. The drain was placed in the abdominal pocket and hooked up to bulb suction. The remaining spit-thickness skin graft was then used to completely cover the umbilicus. It was inset to the surrounding skin edges using a 4-0 plain gut in a simple running fashion. Once all skin grafts were in place, Xeroform was placed over the donor site of the left thigh followed by Kerlix and an ABD pad, Kerlix, and an Aleksander bandage. The skin graft sites were then dressed with tie over bolster dressings for both the umbilicus as well as the bilateral breasts. This was completed by putting bacitracin-coated Xeroform over the skin grafts followed by sterile cotton soaked in mineral oil, and a 2-0 suture was used in a back and forth fashion in order to create a tie over bolster dressing. Once the bolster dressings were in place, ABD pads were applied over bilateral breasts followed by a soft surgical bra. The belly was dressed with ABD pads and an abdominal binder. The patient at this point was slowly awakened and was extubated without incident and then was transported to recovery room in stable condition. GRACIELA AHUMADA M.D. [id number]
== END 2016-08-18 13:10 | disposition home or self-care (01) ==
LOC: FASU 05:59
PROVIDERS: ATTEND Plastic Surgery
PROC: 0HBJXZZ Excision of Left Upper Leg Skin, External Approach (ICD-10-PCS; 2016-08-18)
PROC: 0JBM0ZZ Excision of Left Upper Leg Subcutaneous Tissue and Fascia, Open Approach (ICD-10-PCS; 2016-08-18)
PROC: 0JB60ZZ Excision of Chest Subcutaneous Tissue and Fascia, Open Approach (ICD-10-PCS; 2016-08-18)
PROC: 0HR5X74 Replacement of Chest Skin with Autologous Tissue Substitute, Partial Thickness, External Approach (ICD-10-PCS; principal; 2016-08-18 08:04)
PROC: 0JB60ZZ Excision of Chest Subcutaneous Tissue and Fascia, Open Approach (ICD-10-PCS; 2016-08-18 08:04)
DX: Z85.3 Personal history of malignant neoplasm of breast (principal); Z90.13 Acquired absence of bilateral breasts and nipples; T85.898A Other specified complication of other internal prosthetic devices, implants and grafts, initial encounter; N64.1 Fat necrosis of breast; S31.105A Unspecified open wound of abdominal wall, periumbilic region without penetration into peritoneal cavity, initial encounter; S31.109A Unspecified open wound of abdominal wall, unspecified quadrant without penetration into peritoneal cavity, initial encounter; Y83.2 Surgical operation with anastomosis, bypass or graft as the cause of abnormal reaction of the patient, or of later complication, without mention of misadventure at the time of the procedure; Y92.9 Unspecified place or not applicable; I10 Essential (primary) hypertension
CPT/HCPCS: 88304-TC; 94760

== ENCOUNTER 2017-06-04 06:10 | Day surgery (SDC) | payer OTHER ==
[2017-05-31 15:57] VITALS: BMI 34.9
[2017-06-04] MEDS ORDERED: LIDOCAINE 1%/EPI 1:100000 (20 ML MULTI DOSE VIAL) ONE (07:13)
[2017-06-04] MEDS ORDERED: EPINEPHrine/PF 1 MG/1 ML (1:1,000) AMPULE ONE (07:13)
[2017-06-04] MEDS ORDERED: LIDOCAINE HCL 1%, 10 MG/ML (20ML VIAL) ONE (07:13)
[2017-06-04] MEDS ORDERED: BACITRACIN 15 GM TUBE TOPICAL OINTMENT ONE (07:14)
[2017-06-04] MEDS ORDERED: SUCCINYLCHOLINE CHLORIDE 200 MG/10 ML VIAL ONE (07:30)
[2017-06-04] MEDS ORDERED: MIDAZOLAM HCL 2 MG/2 ML SINGLE DOSE VIAL ONE (07:30)
[2017-06-04] MEDS ORDERED: PROPOFOL 20 ML ONE ×4 (07:30)
[2017-06-04] MEDS ORDERED: fentaNYL CITRATE 250 MCG/5 ML VIAL ONE (07:30)
[2017-06-04] MEDS ORDERED: ROCURONIUM BROMIDE 50 MG/5 ML VIAL ONE (07:30)
--- NOTE | 2017-06-04 07:31 | HP ---
History & Physical Update - History History: No Change - Physical Physical: No Change - Assessment Assessment: No Change - Plan Plan: No Change (Initial H&P completed on 05/31/17. No new complaints or medications since intial H&P.)
[2017-06-04] MEDS ORDERED: ePHEDrine SULFATE 50 MG/1 ML AMPULE ONE (08:15)
[2017-06-04] MEDS ORDERED: ceFAZolin SODIUM 1 GM VIAL ONE (08:19)
[2017-06-04] MEDS ORDERED: ONDANSETRON 4 MG/2 ML VIAL ONE ×2 (08:19→10:52)
[2017-06-04] MEDS ORDERED: LIDOCAINE HCL 2% JELLY (5 ML/TUBE) ONE (08:19)
[2017-06-04] MEDS ORDERED: KETOROLAC TROMETHAMINE 30 MG/1 ML VIAL ONE (08:19)
[2017-06-04] MEDS ORDERED: DEXAMETHASONE SOD PHOSPHATE 4 MG/1 ML VIAL ONE (08:19)
[2017-06-04] MEDS ORDERED: GLYCOPYRROLATE 0.2 MG/1 ML VIAL ONE (08:27)
[2017-06-04] MEDS ORDERED: LIDOCAINE 1%/EPI 1:100000 (50 ML MULTI DOSE VIAL) INF ONE (08:33)
--- NOTE | 2017-06-04 10:18 | OP ---
Operative Note - Note: Operative Date: 06/04/17 Pre-Operative Diagnosis: Breast Cancer Operation: Revision of bilateral reconstructed breasts with subcutaneous tissue transfer from abdomen and flanks. Bilateral nipple areola reconstruction and revision of abdominal scar Post-Operative Diagnosis: Same as Pre-op Surgeon: Haider Charles Sales Representative Raw Fibers: Ruben Britt Anesthesiologist/EDGE MOLDER: Gilbert Glaser Anesthesia: General Specimens Removed: skin/fat from breasts (left and right) Estimated Blood Loss (mls): 25 Fluid Volume Replaced (mls): 650
--- NOTE | 2017-06-04 10:19 | SURG ---
Surgery Narcotics And/Or Vice Detective Note Narcotics And/Or Vice Detective: Ruben Britt PA-C Date of Service: 06/04/17 Diagnosis: Breast Cancer Procedure: Revision of bilateral reconstructed breasts with subcutaneous tissue transfer from abdomen and flanks. Bilateral nipple areola reconstruction and revision of abdominal scar I was present for the entirety of the operative procedure. For further detail, please refer to operative report. Visit type - Case Type Case Type: Scheduled Admission
[2017-06-04] MEDS ORDERED: PROMETHAZINE HCL 25 MG/1 ML VIAL IVPB PRN (10:29)
[2017-06-04] MEDS ORDERED: ONDANSETRON 4 MG/2 ML VIAL IVPUSH PRN (10:29)
[2017-06-04] MEDS ORDERED: oxyCODONE HCL 5 MG TABLET PO PRN ×2 (10:29)
[2017-06-04] MEDS ORDERED: oxyCODONE HCL 5 MG TABLET ONE (12:09)
[2017-06-04 13:17] VITALS: TEMP 98
[2017-06-04 13:52] VITALS: BP 112/69; PULSE 77
--- NOTE | 2017-06-05 12:09 | OP ---
DATE OF OPERATION: 06/04/2017 SURGEON: Anival Charles MD CO-SURGEON: Karlos Ahumada MD SCRUBBER MACHINE TENDER: Ruben Britt PA-C PREOPERATIVE DIAGNOSES: 1. 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 2. Asymmetry of reconstructed chest wall. 3. Deformity of chest wall after skin grafting and skin necrosis. 4. History of breast cancer. POSTOPERATIVE DIAGNOSES: 1. 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 2. Asymmetry of reconstructed chest wall. 3. Deformity of chest wall after skin grafting and skin necrosis. 4. History of breast cancer. OPERATIVE PROCEDURE: 1. Right breast reconstruction utilizing other technique. 2. Left breast reconstruction utilizing other technique. 3. Reduction mastopexy, right breast. 4. Reduction mastopexy, left breast. 5. Tissue rearrangement of abdominal area. 6. Right nipple reconstruction. 7. Left nipple reconstruction. OPERATIVE INDICATION: This is a combined procedure with Dr. Karlos Ahumada as co-surgeons. Two surgeons were working independently without helping each other. OPERATIVE PROCEDURE IN DETAIL: Patient was taken to the operating room, and after induction of general anesthesia in the supine position, both arms were extended and padded. Venodyne boots were placed, and the entire abdomen and flanks, as well as the breasts, were painted with ChloraPrep solution in 2-layer fashion. At this point, after timeout, 1% local lidocaine anesthesia with 1:100,000 epinephrine was then infiltrated into the breasts themselves in the areas of previous deformity and skin grafting from previous skin necrosis. Large defects were seen in both right and left breasts in the medial and lateral portions of each breast, which required excision because of extraneous scars and deformity. At this point, attention was then turned, after topical anesthesia and hemostasis, I began procedure on the left breast by incising the skin down through the subcutaneous tissue, into the deep areas of the breast of the left side. Dr. Ahumada began his portions of the operation on the right side in a combined procedure to reduce operative time and expedite the procedure was carried out for reconstruction with other technique. I made incisions deep into the left breast, elevating flaps from the medial and lateral portions of the breast, and then excised the previously placed skin grafting areas of necrotic skin. These were sent for pathologic diagnosis on both breasts to rule out history of breast cancer and ascertain benign tissue. At this point, attention was turned to the abdomen. I made an incision in the lower abdomen in the previous scar, and then, dissection was carried deep into the area above the rectus muscle, laterally along the external oblique, and along the deep fascia of the abdominal wall, harvesting tissue for reconstruction. This tissue was harvested on both sides of the abdomen and flank area and transferred to the back table for reconstruction. Attention was then turned back to the breast. I approximated the skin and subcutaneous tissues with deep sutures of 2-0 Vicryl sutures on the medial and lateral portions of the breast and also in the central portion of the breast itself. Multiple sutures were placed on the right and left sides symmetrically. Advancement flaps were then created and closed in a second layer using 3-0 PDS sutures in the deep tissue and a running subcuticular suture with 4-0 V-Loc suture on the skin. At this point, nipple-areola complex reconstruction was carried out on the right and left breasts with CV flaps, incising the tissue down into the deep subcutaneous tissue, rotating skin flaps into the usual new position for nipple-areola reconstruction, and then, advancement flaps were created to create bilateral nipple reconstruction. This was closed using 3-0 PDS sutures on the deep tissue and 5-0 plain gut on the skin and subcutaneous tissues. Good shape and contour was seen of both nipple-areola complexes. After the breasts were advanced and closed upon themselves, the lower abdominal tissue and harvesting for reconstructive purposes was transferred to the right and left breasts independently, and large blocks of tissue were then placed into the superior, medial, lateral, and central portions of the right breast as well as the medial, central, lateral, and inferior portions of the left breast. The patient was placed into the sitting position. Good symmetry was seen on both right and left breasts as well as the nipple-areola complex itself. Protective dressings were placed over both nipple-areola complexes, and all wounds were dressed with Dermabond, Steri-Strips, and a compressive dressing. Patient was placed into a Surgi-Bra and an abdominal binder. She tolerated the procedure well. She was awakened, extubated, and transferred to the recovery room in satisfactory condition. ANIVAL CHARLES M.D. [id number]
--- NOTE | 2017-06-10 11:48 | PATH ---
Surgical Pathology Report Patient Name: ELLIE BARTH [facility]. Rec. #: [id number] /Age/Gender: 1950 (Age: 66) / F Account: [id number] Location: [facility] Taken: 06/04/2017 Received: 06/04/2017 Reported: 06/10/2017 Physicians: Haider Charles Specimen(s) Received A: RIGHT BREAST TISSUE B: LEFTBREAST TISSUE Clinical History History of breast cancer Post mastectomies Final Diagnosis A. BREAST TISSUE, RIGHT, EXCISION: SKIN WITH NO PATHOLOGIC FINDINGS. FIBROADIPOSE TISSUE SHOWING CHANGES OF PRIOR PROCEDURE. B. BREAST TISSUE, LEFT, EXCISION: SKIN AND FIBROADIPOSE TISSUE WITH NO PATHOLOGIC FINDINGS. Electronically Signed Joceline Brenner M.D. Gross Description A. Received in formalin labeled "right breast tissue," for gram, 9.0 x 7.5 x 0.7 cm aggregate of gould, irregular portions of skin with underlying soft tissue. No epidermal lesions are identified. Sectioning reveals unremarkable fibroadipose tissue. No lesions are identified. [employer] sections are submitted in one cassette. B. Received in formalin labeled "left breast tissue," is a 100 g, 8.5 x 8.5 x 3.0 cm aggregate of unoriented portions of fibroadipose tissue and gould, unremarkable skin. Sectioning reveals unremarkable fibroadipose tissue. No lesions are identified. [employer] sections are submitted in one cassette. 06/07/2017 [place]udi06/07/2017
--- NOTE | 2017-06-21 08:50 | OP ---
DATE OF OPERATION: 06/04/2017 PREOPERATIVE DIAGNOSES: 1. Personal history of breast cancer. 2. Acquired absence of bilateral breast nipple. 3. Deformity of bilateral reconstructed breasts. POSTOPERATIVE DIAGNOSES: 1. Personal history of breast cancer. 2. Acquired absence of bilateral breast nipple. 3. Deformity of bilateral reconstructed breasts. PROCEDURE: 1. Revision of bilateral breast reconstruction. 2. Bilateral nipple reconstruction. 3. Subcutaneous tissue transfer from abdomen and bilateral flanks to bilateral breasts. SURGEON: GRACIELA SMALLS MD CO-SURGEON: Zakia CHARLES MD WOOL BRUSHER: Ruben Britt RPA ANESTHESIA: General endotracheal. ESTIMATED BLOOD LOSS: 20 mL. SPECIMEN: None. DRAINS: None. COMPLICATIONS: None. CONDITION: Stable to recovery room, extubated. INDICATIONS: The patient is a 66-year-old female with a history of breast cancer who underwent bilateral non-nipple sparing mastectomies and immediate HAYDEN flap reconstruction. The patient developed significant mastectomy skin flap loss postoperatively and required multiple debridements and eventual skin grafting in order to heal her open wounds of her breasts. Her microvascular free flaps did very well and the patient now presents for secondary breast reconstruction including revision of bilateral breasts with removal of the majority of the skin graft as well as bilateral nipple reconstruction and subcutaneous tissue transfer to bilateral breasts. The risks, benefits and alternatives of the surgery were discussed with the patient and her in detail and all questions were answered. The risks include but are not limited to bleeding, infection, pain, need for revision or further surgery, partial or complete skin flap loss, damage to neighboring structures including nerves, arteries, veins and tendons. The patient understands these risks and has elected to proceed with surgery. DESCRIPTION OF PROCEDURE: After proper identification and marking the patient in the preoperative holding area, the patient was transported to the operating room and placed supine on the table while noninvasive anesthesia monitors were applied. Intravenous access was established. General anesthesia was administered and the patient was intubated without difficulty. SCD boots were applied to bilateral lower extremities. Intravenous antibiotics were then given. The patient's bilateral breasts as well as abdomen and flanks were then prepped and draped in the usual sterile fashion. After a timeout was performed, the preoperative markings were reinforced with a skin marker. Local anesthesia was then infiltrated along the preoperative markings using 0.25% Marcaine with 1:200,000 epinephrine. While this was given time to take effect, attention was turned toward the abdomen. Stab incisions were made bilaterally. Standard tumescent solution was then infiltrated into the central abdomen as well as bilateral flanks. While this was given time to take effect, attention was turned back toward the breast. Dr. Charles and I proceeded to work independently as co-surgeons with separate instrument setups. Attention was first turned toward the right breast where the previous skin grafts had been outlined. A No. 15 blade was used to incise around the border of the skin grafts. The superolateral and superomedial mastectomy skin flaps were then elevated just above the level of the underlying microvascular free flaps. This elevation was continued until adequate mobilization had been achieved. The mastectomy skin flaps were then advanced and were closed down to the inframammary folds using a 2-0 Vicryl in an interrupted buried deep dermal fashion, followed by a 3-0 STRATAFIX suture in a running subcuticular fashion. Attention was turned toward the left breast where the same exact procedure was performed, and therefore, only one side will be dictated. Once the bilateral breast revisions had been completed, attention was turned back toward the abdomen. The Revolve system was set up sterilely on the [place] stand. The power-assisted liposuction system was then used to harvest lipoaspirate from the abdomen and bilateral flanks. This lipoaspirate was collected into the Revolve system. The subcutaneous tissue was then processed and the isolated adipocytes were loaded into 10 mL syringes in preparation for subcutaneous tissue transfer. While this processing was taking place, attention was turned toward bilateral nipple reconstruction. The site of the nipples bilaterally had been marked and these locations were confirmed. A modified C-V nipple reconstruction was designed bilaterally. All limbs of the nipple reconstruction were incised. On the right side, the nipple skin flaps were raised with care taken to incorporate an adequate amount of subcutaneous fat. Once the nipple flap had been lifted, the donor limbs were closed with a 3-0 PDS in a buried deep dermal fashion, followed by a 5-0 plain gut in a simple running fashion. The nipple reconstruction limbs were then transposed and inset using a 5-0 plain gut in a simple interrupted fashion. The top of the nipple reconstruction was then secured down to the limbs using a 5-0 plain gut in a simple interrupted fashion. A similar procedure was then performed for the left nipple reconstruction and therefore, only one side will be dictated. At this point, the isolated adipocytes were layered into the subcutaneous tissue of bilateral breasts using a modified Javier technique. A total of 180 mL were injected between the 2 breasts and there was noted to be a significant improvement in the deformity at the chest wall of bilateral breasts. Once this was completed, all access incisions were closed with a 5-0 plain gut in a simple interrupted fashion. Dermabond was then applied to all incision lines. The patient was then placed into a soft surgical bra with care taken to ensure adequate padding with fluffs and ABD pads. The patient, at this point, was slowly awakened and was extubated without incident and then was transported to the recovery room in stable condition. GRACIELA SMALLS M.D. [id number]
== END 2017-06-04 13:40 | disposition home or self-care (01) ==
LOC: FASU 06:10
PROVIDERS: ATTEND Plastic Surgery
PROC: 0HQW0ZZ Repair Right Nipple, Open Approach (ICD-10-PCS; 2017-06-04)
PROC: 0HSV0ZZ Reposition Bilateral Breast, Open Approach (ICD-10-PCS; 2017-06-04)
PROC: 0JX80ZB Transfer Abdomen Subcutaneous Tissue and Fascia with Skin and Subcutaneous Tissue, Open Approach (ICD-10-PCS; 2017-06-04)
PROC: 0HRV07Z Replacement of Bilateral Breast with Autologous Tissue Substitute, Open Approach (ICD-10-PCS; principal; 2017-06-04 08:33)
PROC: 0HQX0ZZ Repair Left Nipple, Open Approach (ICD-10-PCS; 2017-06-04 08:33)
DX: M95.4 Acquired deformity of chest and rib (principal); Z90.13 Acquired absence of bilateral breasts and nipples; N65.1 Disproportion of reconstructed breast; Z85.3 Personal history of malignant neoplasm of breast; I96 Gangrene, not elsewhere classified
CPT/HCPCS: 88304-TC; 94760